=== PATIENT | female | born 1940 | race Caucasian/White ===

== ENCOUNTER 2022-09-22 08:00 | Outpatient (CLI) | payer MEDICARE ==
[2022-09-22 20:56] LABS: BILIRUBIN,URINE NEGATIVE (NEGATIVE); GLUCOSE, URINE (UA) NEGATIVE (NEGATIVE); KETONES,URINE (UA) NEGATIVE (NEGATIVE); LEUKOCYTE ESTERASE, URINE TRACE (NEGATIVE); NITRITE,URINE POSITIVE (NEGATIVE); OCCULT BLOOD,URINE NEGATIVE (NEGATIVE); PROTEIN,URINE NEGATIVE (NEGATIVE); UROBILINOGEN,URINE 0.2 (NORMAL) E.U./dL (NORMAL)
[2022-09-22 21:51] LABS: BACTERIA,URINE Many /HPF (None Seen); CLARITY,URINE HAZY (CLEAR); RBC,URINE 0-5 /HPF (0-5); SQUAMOUS EPITHELIAL CELL,UR RARE Squamous (<= Few); WBC CLUMPS,URINE PRESENT; WBC,URINE >25 /HPF (0-5)
== END 2022-09-22 23:59 | disposition home or self-care (01) ==
LOC: LAB.S 08:00
PROVIDERS: ATTEND Emergency Medicine
DX: R30.0 Dysuria (principal)
CPT/HCPCS: 81001; 87086; 87181

== ENCOUNTER 2022-12-18 08:00 | Outpatient (CLI) | payer MEDICARE ==
[2022-12-18 20:26] LABS: BILIRUBIN,URINE NEGATIVE (NEGATIVE); GLUCOSE, URINE (UA) NEGATIVE (NEGATIVE); KETONES,URINE (UA) NEGATIVE (NEGATIVE); LEUKOCYTE ESTERASE, URINE MODERATE (NEGATIVE); NITRITE,URINE POSITIVE (NEGATIVE); OCCULT BLOOD,URINE TRACE-INTA (NEGATIVE); PROTEIN,URINE TRACE mg/dL (NEGATIVE); UROBILINOGEN,URINE 1 (NORMAL) E.U./dL (NORMAL)
[2022-12-18 20:38] LABS: CLARITY,URINE CLOUDY (CLEAR); SQUAMOUS EPITHELIAL CELL,UR RARE Squamous (<= Few); WBC,URINE >25 /HPF (0-5)
[2022-12-18 20:39] LABS: BACTERIA,URINE Many /HPF (None Seen)
== END 2022-12-18 23:59 | disposition home or self-care (01) ==
LOC: LAB 08:00
PROVIDERS: ATTEND Emergency Medicine
DX: R30.0 Dysuria (principal)
CPT/HCPCS: 81001; 87086; 87181

== ENCOUNTER 2023-03-09 08:00 | Outpatient (CLI) | payer MEDICARE ==
[2023-03-09 15:14] LABS: BILIRUBIN,URINE NEGATIVE (NEGATIVE); GLUCOSE, URINE (UA) NEGATIVE (NEGATIVE); KETONES,URINE (UA) NEGATIVE (NEGATIVE); LEUKOCYTE ESTERASE, URINE NEGATIVE (NEGATIVE); NITRITE,URINE NEGATIVE (NEGATIVE); OCCULT BLOOD,URINE NEGATIVE (NEGATIVE); PH,URINE 5.5 PH (5.0-7.5); PROTEIN,URINE NEGATIVE (NEGATIVE); UROBILINOGEN,URINE 0.2 (NORMAL) E.U./dL (NORMAL)
[2023-03-09 15:35] LABS: BACTERIA,URINE Rare /HPF (None Seen); CLARITY,URINE CLEAR (CLEAR); RBC,URINE 0-5 /HPF (0-5); SQUAMOUS EPITHELIAL CELL,UR RARE Squamous (<= Few)
== END 2023-03-09 23:59 | disposition home or self-care (01) ==
LOC: LAB.S 08:00
PROVIDERS: ATTEND Physician Assistant
DX: R30.0 Dysuria (principal)
CPT/HCPCS: 81001; 87086

== ENCOUNTER 2023-09-22 08:00 | Outpatient (CLI) | payer MEDICARE | END 2023-09-22 23:59 | disposition home or self-care (01) | LOC: LAB.S 08:00 | PROVIDERS: ATTEND Registered Nurse | DX: R30.0 Dysuria (principal) | CPT/HCPCS: 87086 ==

== ENCOUNTER 2023-09-23 08:00 | Outpatient (CLI) | payer MEDICARE ==
--- NOTE | 2023-09-23 17:56 | XRAY Report ---
PROCEDURE: Abdomen Acute INDICATIONS: NAUSEA AND ABDOMINAL PAIN TECHNIQUE: 5 views of the abdomen were acquired. COMPARISON: None. FINDINGS: Surgical changes and devices: Thoracic aorta endograft repair. Cholecystectomy clips. Vascular stent projects over the left mid abdomen, likely within the renal artery. Partially visualized left femora l intramedullary pankaj and interlocking screw hardware. Chest: Lungs are clear. Hyperexpansion of the lungs with flattening of the diaphragms suggestive of obstructive pulmonary disease. Heart size is at the upper limits of normal tortuous descending thorac ic aorta. No pleural effusions. No pneumoperitoneum. Bowel: No pneumoperitoneum. The bowel gas pattern is normal. Above-average colonic stool burden. Soft tissues: No masses; visualized solid organ contours appear normal in size. No suspicious abdom inal calcifications. Bones: No suspicious bony abnormalities. IMPRESSION: 1.No acute abdominal or chest pathology. If there is high clinical suspicion for a radiographically o ccult process, consider cross-sectional imaging for further evaluation. 2.Above-average colonic stool burden compatible with constipation. Reviewed by: Nani Chambers MD on 09/23/2023 5:54 PM PST Approved by: Nani Chambers MD on 09/23/2023 5:54 PM PST Station ID: [id number]
== END 2023-09-23 23:59 | disposition home or self-care (01) ==
LOC: DI.S 08:00
PROVIDERS: ATTEND Registered Nurse
DX: R11.0 Nausea (principal); R10.9 Unspecified abdominal pain; R30.0 Dysuria
CPT/HCPCS: 87086

== ENCOUNTER 2023-10-08 10:47 | Outpatient (CLI) | payer MEDICARE ==
[2023-10-08 15:52] LABS: CALCIUM 9.4 mg/dL (8.5-10.3); CREATININE 1.8 mg/dL (0.6-1.3); PHOSPHORUS 4.7 mg/dL (2.5-5.0); POTASSIUM 5.4 mmol/L (3.5-4.5)
== END 2023-10-08 10:48 | disposition home or self-care (01) ==
LOC: LAB.S 10:47
PROVIDERS: ATTEND Internal Medicine
DX: N17.9 Acute kidney failure, unspecified (principal); E87.5 Hyperkalemia
CPT/HCPCS: 36415; 80048; 84100

== ENCOUNTER 2023-10-19 10:42 | Outpatient (CLI) | payer MEDICARE ==
[2023-10-19] MEDS: ALBUTEROL 1 PUFF INH STA (12:32)
== END 2023-10-19 10:43 | disposition home or self-care (01) ==
LOC: RT 10:42
PROVIDERS: ATTEND Internal Medicine
DX: I10 Essential (primary) hypertension (principal); R06.00 Dyspnea, unspecified; R53.83 Other fatigue
CPT/HCPCS: 94060

== ENCOUNTER 2023-12-02 13:12 | Outpatient (CLI) | payer MEDICARE ==
--- NOTE | 2023-12-02 22:51 | Ultrasound Report ---
PROCEDURE: Renal (Retroperitoneal) INDICATIONS: PAUL TECHNIQUE: Real-time scanning was performed of the retroperitoneal organs, with image documentation. COMPARISON: None. FINDINGS: Kidneys: Bilateral kidneys are normal in size. Right kidney measures 10.6 cm long; left kidney measu res 10.7 cm long. Right renal cortical thickness is 1 cm; left renal cortical thickness is 0.7 cm. O amanda anechoic cysts bilaterally with no septations or nodularity. No complex cystic lesions which requ rakesh follow-up. The largest cyst on the right measures 1.6 x 2.2 x 2.2 cm. The left-sided cysts are re latively uniform in size measuring less than 1 cm. Renal parenchyma is echogenic. No solid masses, hy dronephrosis, or nephrolithiasis. Bladder: Pre-void bladder volume is 114 mL. Post-void residual is 92 mL. Pre-void images demonstra te no intraluminal masses or stones. On pre-void images, bilateral ureteral jets are noted with colo r Doppler interrogation. (Of note, ureteral jets may not be detectable in up to 25% of cases due to insufficient differences in specific gravity between ureteral and bladder urine). Miscellaneous: No free abdominal fluid. IMPRESSION: 1.Renal parenchyma is echogenic which may be seen in the setting of kidney injury. No hydronephrosis or nephrolithiasis bilaterally. 2.Multiple cysts in the bilateral kidneys. No complex cystic lesions which require follow-up. 3.Post void residual is 92 mL. Reviewed by: Nani Chambers MD on 12/02/2023 10:49 PM PDT Approved by: Nani Chambers MD on 12/02/2023 10:49 PM PDT Station ID: [id number]
== END 2023-12-02 13:13 | disposition home or self-care (01) ==
LOC: DI 13:12
PROVIDERS: ATTEND Internal Medicine
DX: N17.9 Acute kidney failure, unspecified (principal); E87.5 Hyperkalemia; N28.1 Cyst of kidney, acquired

== ENCOUNTER 2023-12-14 13:35 | Outpatient (CLI) | payer MEDICARE ==
[2023-12-14 20:07] LABS: BASOPHILS % (AUTO) 0.3 %; EOSINOPHILS # (AUTO) 0.1 10^3/uL (0.0-0.7); EOSINOPHILS % (AUTO) 0.9 %; HCT - HEMATOCRIT 44.2 % (37.0-47.0); HGB - HEMOGLOBIN 13.1 g/dL (12.0-16.0); LYMPHOCYTES % (AUTO) 9.1 %; MEAN CORPUSCULAR HGB CONC 29.6 g/dL (32.0-36.0); MEAN CORPUSCULAR VOLUME 104.7 fL (81.0-99.0); MEAN PLATELET VOLUME 10.2 fL (7.9-10.8); MONOCYTES % (AUTO) 8.7 %; NEUTROPHILS # (AUTO) 9.1 10^3/uL (1.5-6.6); NEUTROPHILS % (AUTO) 80.7 %; PLT - PLATELET COUNT 199 10^3/uL (130-450); RED BLOOD COUNT 4.22 10^6/uL (4.20-5.40); RED CELL DISTRIBUTION WIDTH 12.5 % (12.0-15.0); WHITE BLOOD COUNT 11.2 x10^3/uL (4.8-10.8)
[2023-12-14 20:11] LABS: CALCIUM 9.8 mg/dL (8.5-10.3); CREATININE 1.8 mg/dL (0.6-1.3); PHOSPHORUS 4.2 mg/dL (2.5-5.0); POTASSIUM 5.5 mmol/L (3.5-4.5)
== END 2023-12-14 13:36 | disposition home or self-care (01) ==
LOC: LAB.S 13:35
PROVIDERS: ATTEND Internal Medicine Nephrology
DX: N05.9 Unspecified nephritic syndrome with unspecified morphologic changes (principal); N25.81 Secondary hyperparathyroidism of renal origin; E83.30 Disorder of phosphorus metabolism, unspecified; D70.9 Neutropenia, unspecified; D63.1 Anemia in chronic kidney disease
CPT/HCPCS: 36415; 80048; 83970; 84100; 85025

== ENCOUNTER 2023-12-24 18:21 | Outpatient (CLI) | payer MEDICARE | END 2023-12-24 18:22 | disposition short-term general hospital (02) | LOC: EMS 18:21 | DX: R07.9 Chest pain, unspecified (principal); M25.512 Pain in left shoulder; R06.02 Shortness of breath | CPT/HCPCS: A0425; A0427 ==

== ENCOUNTER 2023-12-25 16:26 | Outpatient (CLI) | payer MEDICARE | END 2023-12-25 23:59 | disposition critical access hospital (66) | LOC: EMS 16:26 | DX: R06.02 Shortness of breath (principal); M25.512 Pain in left shoulder | CPT/HCPCS: A0425; A0429 ==

== ENCOUNTER 2023-12-25 16:53 | Emergency (ER) | payer MEDICARE ==
--- NOTE | 2023-12-25 17:06 | ED Physician Documentation ---
History of Present Illness - Stated complaint Stated Complaint: SOA - Chief complaint Chief Complaint: Resp - Additonal information Additional information: 83-year-old female with history of aortic dissection And Sleep apnea Presents emergency department for left shoulder pain, chest pain, shortness of breath. Patient was seen at [facility] emergency department yesterday and had a clean bill of health and was discharged home. Patient reports that she started having new worsening left shoulder pain with worsening shortness of breath also complains of urinary urgency and frequency. No recent fevers or chills no recent illnesses no cough or congestion. PD PAST MEDICAL HISTORY - Present Medications Home Medications: Ambulatory Orders Medication Instructions Recorded Confirmed Amox/Clav 875/125 [Augmentin 1 tablet PO Q12H 5 Days #9 tablet 12/25/23 875/125 Tab] Apixaban [Eliquis] 2.5 mg PO BID 12/25/23 12/25/23 Azithromycin [Zithromax] 250 mg PO UD 5 Days #6 tablet 12/25/23 Carbidopa/Levodopa [Sinemet 25-100 1 each PO . 4-6 TIMES A DAY 12/25/23 12/25/23 mg Tablet] Famotidine [Pepcid] 20 mg PO DAILY 12/25/23 12/25/23 Omeprazole 20 mg PO DAILY 12/25/23 12/25/23 Rosuvastatin Calcium 20 mg PO HS 12/25/23 12/25/23 amLODIPine [Norvasc] 2.5 mg PO DAILY 12/25/23 12/25/23 lamoTRIgine [LaMICtal] 100 mg PO DAILY 12/25/23 12/25/23 - Allergies Allergies/Adverse Reactions: Allergies Allergy/AdvReac Type Severity Reaction Status Date / Time diltiazem AdvReac Unknown Verified 12/25/23 17:06 lithium AdvReac Unknown Verified 12/25/23 17:06 pramipexole AdvReac Unknown Verified 12/25/23 17:06 sertraline AdvReac Unknown Verified 12/25/23 17:06 tetracycline AdvReac Emesis Verified 12/25/23 17:06 valproic acid AdvReac Emesis Verified 12/25/23 17:06 - Social History Does the pt smoke?: No Smoking Status: Never smoker PD ED PE NORMAL - Vitals Vital signs reviewed: Yes - General General: Alert and oriented X 3, No acute distress, Well developed/nourished - HEENT HEENT: Atraumatic - Neck Neck: No JVD - Cardiac Cardiac: RRR, No murmur, No gallop, Strong equal pulses - Respiratory Respiratory: No respiratory distress, Clear bilaterally - Abdomen Abdomen: Normal bowel sounds, Soft, Non tender, Non distended, No organomegaly - Back Back: No CVA TTP - Derm Derm: Normal color, Warm and dry, No rash - Extremities Extremities: No edema, No calf tenderness / cord - Neuro Neuro: Alert and oriented X 3, 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) Computer interpretation: Agree with computer - Labs Labs: Laboratory Tests 12/25/23 12/25/23 12/25/23 17:11 17:59 17:59 WBC 19.6 H RBC 3.83 L Hgb 12.1 Hct 39.2 MCV 102.3 H MCH 31.6 H MCHC 30.9 L RDW 12.4 Plt Count 164 MPV 9.6 Neut # (Auto) 16.3 H Lymph # (Auto) 1.0 L [place] # (Auto) 2.2 H Eos # (Auto) 0.0 Baso # (Auto) 0.0 Absolute Nucleated RBC 0.00 Band Neuts % (Manual) Not Reportable Abnorm Lymph % (Manual) Not Reportable Nucleated RBC % 0.0 Neutrophils # (Manual) Not Reportable Lymphocytes # (Manual) Not Reportable Monocytes # (Manual) Not Reportable Eosinophils # (Manual) Not Reportable Basophils # (Manual) Not Reportable Differential Comment MANUAL=AUTO DIFF Platelet Estimate NORMAL (130-450,000) Platelet Morphology NORMAL APPEARANCE RBC Morph Micro Appear NORMAL APPEARANCE Sodium 136 Potassium 4.6 H Chloride 108 Carbon Dioxide 20 L Anion Gap 8.0 BUN 41 H Creatinine 1.7 H Estimated GFR (MDRD) 29 L Glucose 118 H Calcium 9.2 Total Bilirubin 0.6 AST 11 ALT 3 L Alkaline Phosphatase 54 Troponin I High Sens 19.0 H* B-Natriuretic Peptide Total Protein 6.1 L Albumin 3.6 Globulin 2.5 Albumin/Globulin Ratio 1.4 Lipase 22 Urine Color YELLOW Urine Clarity CLEAR Urine pH 6.0 Ur Specific [place] 1.010 Urine Protein 30 H Urine Glucose (UA) NEGATIVE Urine Ketones NEGATIVE Urine Occult Blood NEGATIVE Urine Nitrite NEGATIVE Urine Bilirubin NEGATIVE Urine Urobilinogen 0.2 (NORMAL) Ur Leukocyte Esterase NEGATIVE Urine RBC None Seen Urine WBC 4-5 Ur Epithelial Cells RARE Transitional Ur Squamous Epith Cells RARE Squamous Urine Bacteria Rare Ur Microscopic Review INDICATED Urine Culture Comments NOT INDICATED Nasal Adenovirus (PCR) Nasal B. parapertussis DNA (PCR) Nasal Coronavir 229E PCR Nasal Coronavir HKU1 PCR Nasal Coronavir NL63 PCR Nasal Coronavir OC43 PCR Nasal Enterovir/Rhinovir PCR Nasal Influenza B PCR Nasal Influenza A PCR Nasal Parainfluen 1 PCR Nasal Parainfluen 2 PCR Nasal Parainfluen 3 PCR Nasal Parainfluen 4 PCR Nasal RSV (PCR) Nasal B.pertussis DNA PCR Nasal C.pneumoniae (PCR) Eder Human Metapneumo PCR Nasal M.pneumoniae (PCR) Nasal SARS-CoV-2 (PCR) 12/25/23 12/25/23 12/25/23 17:59 21:04 22:17 WBC RBC Hgb Hct MCV MCH MCHC RDW Plt Count MPV Neut # (Auto) Lymph # (Auto) [place] # (Auto) Eos # (Auto) Baso # (Auto) Absolute Nucleated RBC Band Neuts % (Manual) Abnorm Lymph % (Manual) Nucleated RBC % Neutrophils # (Manual) Lymphocytes # (Manual) Monocytes # (Manual) Eosinophils # (Manual) Basophils # (Manual) Differential Comment Platelet Estimate Platelet Morphology RBC Morph Micro Appear Sodium Potassium Chloride Carbon Dioxide Anion Gap BUN Creatinine Estimated GFR (MDRD) Glucose Calcium Total Bilirubin AST ALT Alkaline Phosphatase Troponin I High Sens 18.9 H* B-Natriuretic Peptide 449 H Total Protein Albumin Globulin Albumin/Globulin Ratio Lipase Urine Color Urine Clarity Urine pH Ur Specific [place] Urine Protein Urine Glucose (UA) Urine Ketones Urine Occult Blood Urine Nitrite Urine Bilirubin Urine Urobilinogen Ur Leukocyte Esterase Urine RBC Urine WBC Ur Epithelial Cells Ur Squamous Epith Cells Urine Bacteria Ur Microscopic Review Urine Culture Comments Nasal Adenovirus (PCR) NOT DETECTED Nasal B. parapertussis DNA (PCR) NOT DETECTED Nasal Coronavir 229E PCR NOT DETECTED Nasal Coronavir HKU1 PCR NOT DETECTED Nasal Coronavir NL63 PCR NOT DETECTED Nasal Coronavir OC43 PCR NOT DETECTED Nasal Enterovir/Rhinovir PCR NOT DETECTED Nasal Influenza B PCR NOT DETECTED Nasal Influenza A PCR NOT DETECTED Nasal Parainfluen 1 PCR NOT DETECTED Nasal Parainfluen 2 PCR NOT DETECTED Nasal Parainfluen 3 PCR NOT DETECTED Nasal Parainfluen 4 PCR NOT DETECTED Nasal RSV (PCR) NOT DETECTED Nasal B.pertussis DNA PCR NOT DETECTED Nasal C.pneumoniae (PCR) NOT DETECTED Eder Human Metapneumo PCR NOT DETECTED Nasal M.pneumoniae (PCR) NOT DETECTED Nasal SARS-CoV-2 (PCR) NOT DETECTED - Rads (name of study) Chest x-ray Relevant Findings:: Final report received, EMP independent interpretation of test, Other (Lung volumes, atelectasis to left lower lung) PD Medical Decision Making - ED course ED course: 83-year-old female presents emergency department for shortness of breath, left shoulder pain, chest pain. Labs were collected while she was here patient's sister is at bedside and reports that she had mild leukocytosis yesterday at [facility] ER but does not member what the number was. White count today 19.6, RBCs 3.83. Potassium slightly elevated at 4.6 patient reports this is normal for her that she tends to have hyperkalemia due to her losartan. BUN elevated at 41, GFR 29 which appears to be patient's baseline kidney function last BUN was drawn in December as well as September and were found to be 43 at that time as well GFR at that point in time was 27. Her troponin did come back elevated at 19.0 but delta troponins after 2 hours were also completed and there was no elevation. BNP also slightly elevated at 449 patient reports that she was on furosemide in September for about a month and some change and did not report that this helped with her shortness of breath symptoms that she was experiencing. Urinalysis was also found to be unremarkable patient sister says that she has had an episode of sepsis in the past with normal urine. Patient has not had any recent antibiotic use. Chest x-ray was also complete for further evaluation which showed atelectasis with low lung volumes especially to the left lower lung. Because of this and the elevated white blood cell count out of an abundance of caution we decided to go ahead and start patient on Augmentin and azithromycin for possible community-acquired pneumonia. Patient does report that she has chronic shortness of breath that has been going on for years now I do not believe that this is due to any sort of ischemia. At this point in time I do not believe that patient meets any requirements for hospitalization she is told to follow-up with her health professor outpatient Dr. Khoa Lima for further evaluation and possible outpatient workup I did involve another ER Dr. Haney and patient's care for second opinion she agrees with plan see note for further information. Departure - Departure Disposition: 01 Home, Self Care Clinical Impression: Leukocytosis, Community acquired pneumonia, Elevated brain natriuretic peptide (BNP) level Condition: Stable Instructions: Pneumonia Prescriptions: Amox/Clav 875/125 [Augmentin 875/125 Tab] 1 tablet PO Q12H 5 Days #9 tablet Azithromycin [Zithromax] 250 mg PO UD 5 Days #6 tablet Comments: As we discussed is possible that you may be experiencing community-acquired pneumonia. I have sent antibiotics to [facility] pick these up tomorrow and take them as prescribed. Please follow-up with your primary care provider as well as her health professor outpatient for further evaluation of your ongoing shortness of breath. Please have a repeat chest x-ray done as well as repeat labs with your primary care provider. Please come back to the emergency department if you are having any worsening shortness of breath, worsening chest pain, or any other concerning symptoms. Forms: PCP List Discharge Date/Time: 12/25/23 22:55
[2023-12-25 18:13] LABS: BILIRUBIN,URINE NEGATIVE (NEGATIVE); GLUCOSE, URINE (UA) NEGATIVE (NEGATIVE); KETONES,URINE (UA) NEGATIVE (NEGATIVE); LEUKOCYTE ESTERASE, URINE NEGATIVE (NEGATIVE); NITRITE,URINE NEGATIVE (NEGATIVE); OCCULT BLOOD,URINE NEGATIVE (NEGATIVE); PROTEIN,URINE 30 mg/dL (NEGATIVE); UROBILINOGEN,URINE 0.2 (NORMAL) E.U./dL (NORMAL)
[2023-12-25 18:14] LABS: CLARITY,URINE CLEAR (CLEAR)
[2023-12-25 18:23] LABS: BACTERIA,URINE Rare /HPF (None Seen); RBC,URINE None Seen /HPF (0-5); SQUAMOUS EPITHELIAL CELL,UR RARE Squamous (<= Few)
[2023-12-25 18:24] LABS: BASOPHILS % (AUTO) 0.2 %; EOSINOPHILS % (AUTO) 0.1 %; HCT - HEMATOCRIT 39.2 % (37.0-47.0); HGB - HEMOGLOBIN 12.1 g/dL (12.0-16.0); LYMPHOCYTES % (AUTO) 4.9 %; MEAN CORPUSCULAR HEMOGLOBIN 31.6 pg (27.0-31.0); MEAN CORPUSCULAR HGB CONC 30.9 g/dL (32.0-36.0); MEAN CORPUSCULAR VOLUME 102.3 fL (81.0-99.0); MEAN PLATELET VOLUME 9.6 fL (7.9-10.8); MONOCYTES # (AUTO) 2.2 10^3/uL (0.0-1.0); MONOCYTES % (AUTO) 11.4 %; NEUTROPHILS # (AUTO) 16.3 10^3/uL (1.5-6.6); NEUTROPHILS % (AUTO) 82.8 %; PLT - PLATELET COUNT 164 10^3/uL (130-450); RED BLOOD COUNT 3.83 10^6/uL (4.20-5.40); RED CELL DISTRIBUTION WIDTH 12.4 % (12.0-15.0); WHITE BLOOD COUNT 19.6 x10^3/uL (4.8-10.8)
[2023-12-25 18:24] LABS: EPITHELIAL CELLS,UR RARE Transitional /HPF (<= Few)
[2023-12-25 18:30] LABS: ALBUMIN 3.6 g/dL (3.2-5.5); ALBUMIN/GLOBULIN RATIO 1.4 (1.0-2.2); BILIRUBIN,TOTAL 0.6 mg/dL (0.2-1.0); CALCIUM 9.2 mg/dL (8.5-10.3); CREATININE 1.7 mg/dL (0.6-1.3); POTASSIUM 4.6 mmol/L (3.5-4.5); TOTAL PROTEIN 6.1 g/dL (6.4-8.9)
--- NOTE | 2023-12-25 18:45 | XRAY Report ---
PROCEDURE: Chest 1V INDICATIONS: Chest Pain TECHNIQUE: One view of the chest was acquired. COMPARISON: 09/23/2023 FINDINGS: Surgical changes and devices: There is an aortic arch stent seen. Lungs and pleura: Low lung volumes can be seen, causing a crowded appearance to the lung markings. P atchy interstitial-type infiltrate can be seen within the left lower lung. The right lung appears sabino ar. On the semiupright images, no large pneumothorax or large pleural effusions can be seen. Mediastinum: Mediastinal contours appear normal. Heart size is normal. Bones and chest wall: No suspicious bony lesions. Age-appropriate degenerative changes are seen. O verlying soft tissues appear unremarkable. IMPRESSION: Low lung volumes with patchy interstitial type infiltrate involving the left lower lung. Atelectasis is suspected, although infectious infiltrate is possible. Please consider a short-term follow-up 2 view chest series (performed in deep inspiration) for furthe r evaluation. Postoperative and degenerative changes are seen. Reviewed by: Kolton Nichols MD on 12/25/2023 5:44 PM DARYL Approved by: Kolton Nichols MD on 12/25/2023 5:44 PM DARYL Station ID: [id number]
[2023-12-25 18:50] LABS: DIFFERENTIAL COMMENT MANUAL=AUTO DIFF; PLATELET ESTIMATE, MANUAL NORMAL (130-450,000) (NORMAL); PLATELET MORPHOLOGY NORMAL APPEARANCE (NORMAL); RBC MORPHOLOGY (MULTIPLE) NORMAL APPEARANCE (NORMAL)
[2023-12-25] MEDS: ASPIRIN 325 MG TABLET PO STA (19:10)
[2023-12-25 21:14] VITALS: O2SAT 93
[2023-12-25] MEDS: FUROSEMIDE 40 MG/4 ML VIAL IVP STA (22:08)
[2023-12-25] MEDS: AZITHROMYCIN INJ 500 MG in SODIUM CHLORIDE 0.9% 250 ML IV STA (22:32)
[2023-12-25] MEDS: cefTRIAXone 1 GM in SODIUM CHLORIDE 0.9% MINIBAG 100 ML IV STA (22:32)
[2023-12-25] MEDS: AMOX/CLAV 875 MG/125 MG TABLET PO STA (22:47)
[2023-12-25] MEDS: AZITHROMYCIN 250 MG TABLET PO STA (22:47)
[2023-12-25 22:58] VITALS: BP 105/58
--- NOTE | 2023-12-25 22:58 | ED Physician Documentation ---
ED Addendum - Addendum Addendum: 12/25/23 22:55 Note that MOOK Chavez asked me to consult in on this patient. Briefly, 83yF with pmh aortic dissection s/p stent on AC p/w R shoulder pain radiating to chest as well as acute on chronic soa and productive cough. patient is well appearing on exam and has ekg without acute ASYA or TWI and trop X 2 that is stable and just above cutoff for normal high sensitivity troponin. She has normal BP and equal BL pulses, and is now without pain in the ED therefore low suspicion for repeat aortic dissection or vascular pathology. She does however have decreased lung sounds BL lower lung desai with atelectasis vs pneumonia on chest xray. Recommend treatment for CAP in setting of acute on chronic soa with productive cough.
[2023-12-25 23:37] LABS: B. PARAPERTUSSIS- RESP PCR PAN NOT DETECTED; B. PERTUSSIS- RESP PCR PANEL NOT DETECTED; C. PNEUMONIAE- RESP PCR PANEL NOT DETECTED; CORONAVIRUS 229E-RESP PCR NOT DETECTED; CORONAVIRUS HKU1-RESP PCR NOT DETECTED; CORONAVIRUS NL63-RESP PCR NOT DETECTED; CORONAVIRUS OC43-RESP PCR NOT DETECTED; HUMAN METAPNEUMOVIRUS NOT DETECTED; INFLUENZA A- RESP PCR PANEL NOT DETECTED; INFLUENZA B - RESP PCR PANEL NOT DETECTED; M. PNEUMONIAE- RESP PCR PANEL NOT DETECTED; PARAINFLUENZA VIRUS 1 NOT DETECTED; PARAINFLUENZA VIRUS 2 NOT DETECTED; PARAINFLUENZA VIRUS 3 NOT DETECTED; PARAINFLUENZA VIRUS 4 NOT DETECTED; RHINOVIRUS/ENTEROVIRUS NOT DETECTED; RSV- RESP PCR PANEL NOT DETECTED; SARS-CoV-2 -RESP PCR PANEL NOT DETECTED
== END 2023-12-25 22:55 | disposition home or self-care (01) ==
LOC: EDUNIT# → ED 16:53
DX: J18.9 Pneumonia, unspecified organism (principal); D72.829 Elevated white blood cell count, unspecified; R79.89 Other specified abnormal findings of blood chemistry; Z79.01 Long term (current) use of anticoagulants; Z79.899 Other long term (current) drug therapy
CPT/HCPCS: 36415; 71045; 80053; 81001; 83690; 83880; 84484; 85025; 87633; 93005; 96374; 99284; A9270; 81003; 87086

== ENCOUNTER 2024-01-05 15:50 | Outpatient (CLI) | payer MEDICARE ==
--- NOTE | 2024-01-05 20:40 | XRAY Report ---
PROCEDURE: Chest 2V INDICATIONS: DYSPNEA,PNEUMONIA TECHNIQUE: 2 views of the chest were acquired. COMPARISON: 12/25/2023. FINDINGS: Surgical changes and devices: Thoracic aortic stent is seen. Lungs and pleura: No pleural effusions or pneumothorax. Lungs are clear. Mediastinum: Mediastinal contours appear normal. Heart size is enlarged. Bones and chest wall: No suspicious bony lesions. Overlying soft tissues appear unremarkable. IMPRESSION: No acute cardiopulmonary process. Previously noted possible left basilar infiltrate versus atelectasi s is no longer seen. Reviewed by: Heath Glover MD on 01/05/2024 8:38 PM PDT Approved by: Heath Glover MD on 01/05/2024 8:38 PM PDT Station ID: [id number]
== END 2024-01-05 15:51 | disposition home or self-care (01) ==
LOC: DI 15:50
PROVIDERS: ATTEND Internal Medicine
DX: J18.9 Pneumonia, unspecified organism (principal)

== ENCOUNTER 2024-03-02 08:00 | Outpatient (CLI) | payer MEDICARE ==
--- NOTE | 2024-03-02 16:26 | XRAY Report ---
PROCEDURE: Chest 2V INDICATIONS: FATIGUE TECHNIQUE: 2 views of the chest were acquired. COMPARISON: 01/05/2024 FINDINGS: Surgical changes and devices: Thoracic aortic stent. Lungs and pleura: No pleural effusions or pneumothorax. Lungs are clear. Mediastinum: Mediastinal contours appear normal. Heart size is enlarged, stable. Bones and chest wall: No suspicious bony lesions. Overlying soft tissues appear unremarkable. IMPRESSION: No acute cardiopulmonary process. Reviewed by: Vinnie Fuentes MD on 03/02/2024 4:24 PM PDT Approved by: Vinnie Fuentes MD on 03/02/2024 4:24 PM PDT Station ID: [id number]
== END 2024-03-02 23:59 | disposition home or self-care (01) ==
LOC: DI.S 08:00
PROVIDERS: ATTEND Registered Nurse
DX: R53.83 Other fatigue (principal); R06.09 Other forms of dyspnea

== ENCOUNTER 2024-03-02 08:00 | Outpatient (CLI) | payer MEDICARE | END 2024-03-02 23:59 | disposition home or self-care (01) | LOC: LAB.N 08:00 | PROVIDERS: ATTEND Registered Nurse | DX: R82.79 Other abnormal findings on microbiological examination of urine (principal); R53.83 Other fatigue; R06.09 Other forms of dyspnea | CPT/HCPCS: 87086 ==

== ENCOUNTER 2024-03-04 12:58 | Outpatient (CLI) | payer MEDICARE ==
[2024-03-04 19:52] LABS: BASOPHILS % (AUTO) 0.3 %; EOSINOPHILS # (AUTO) 0.1 10^3/uL (0.0-0.7); EOSINOPHILS % (AUTO) 0.9 %; HCT - HEMATOCRIT 44.4 % (37.0-47.0); HGB - HEMOGLOBIN 13.3 g/dL (12.0-16.0); LYMPHOCYTES # (AUTO) 0.9 10^3/uL (1.5-3.5); LYMPHOCYTES % (AUTO) 8.5 %; MEAN CORPUSCULAR HEMOGLOBIN 31.1 pg (27.0-31.0); MEAN CORPUSCULAR VOLUME 103.7 fL (81.0-99.0); MEAN PLATELET VOLUME 10.1 fL (7.9-10.8); MONOCYTES # (AUTO) 0.8 10^3/uL (0.0-1.0); MONOCYTES % (AUTO) 7.9 %; NEUTROPHILS # (AUTO) 8.6 10^3/uL (1.5-6.6); NEUTROPHILS % (AUTO) 82.1 %; PLT - PLATELET COUNT 206 10^3/uL (130-450); RED BLOOD COUNT 4.28 10^6/uL (4.20-5.40); WHITE BLOOD COUNT 10.4 x10^3/uL (4.8-10.8)
[2024-03-04 20:10] LABS: ALBUMIN 4.2 g/dL (3.2-5.5); ALBUMIN/GLOBULIN RATIO 1.6 (1.0-2.2); BILIRUBIN,TOTAL 0.5 mg/dL (0.2-1.0); CALCIUM 9.7 mg/dL (8.5-10.3); CREATININE 1.8 mg/dL (0.6-1.3); POTASSIUM 5.1 mmol/L (3.5-4.5); TOTAL PROTEIN 6.9 g/dL (6.4-8.9)
== END 2024-03-04 12:59 | disposition home or self-care (01) ==
LOC: LAB.S 12:58
PROVIDERS: ATTEND Registered Nurse
DX: R53.83 Other fatigue (principal); R06.09 Other forms of dyspnea
CPT/HCPCS: 36415; 80053; 85025

== ENCOUNTER 2024-09-24 01:50 | Inpatient (IN) ==
--- NOTE | 2024-09-24 02:05 | ED Physician Documentation ---
PD HPI Fall Stated complaint Stated Complaint: FOUND DOWN Chief complaint Chief Complaint: Neuro History obtained from History obtained from: Patient (patient states went to bathroom and was getting back to bed, but misjudged and fell to floor. Pain right lateral hip and post erior thorax. hit [facility] for help. ) and EMS History of Present Illness Mechanism of injury: Lost balance Fall distance: Standing position Where injury occurred: Home (assisted living) Timing - onset: How many hours ago (1) Injury(ies) location: Neck, Back (thoracic area) and Right Lower Extremity (lateral hip); No Head Pain level max: 2 Pain level now: 2 Associated symptoms: No LOC or AMS Contributing factors: Anticoagulated (apixaban for atrial fib. ) Recently seen: Clinic ([place] had cough and congestion for several days, with some wheezing. seen at Walk In earlier today and Rx for Zpack. ) Treatment prior to arrival Treatment prior to arrival: oxygen for sats 90% RA by EMS. Meds/Allgy Home Medications Ambulatory Orders Medication Instructions Recorded Confirmed amlodipine 5 mg tablet 2.5 mg PO DAILY PM 06/28/24 09/24/24 carbidopa 25 mg-levodopa 100 mg 1 tab PO TID 06/28/24 09/24/24 tablet (Sinemet) carbidopa ER 50 mg-levodopa 200 mg 2 tab PO QID 06/28/24 09/24/24 tablet,extended release metoprolol tartrate 25 mg tablet 25 mg PO BID 06/28/24 09/24/24 omeprazole 20 mg capsule,delayed 20 mg PO QDAY 07/28/24 09/24/24 release quetiapine 100 mg tablet 300 mg PO .QHS 07/28/24 09/24/24 albuterol sulfate 90 mcg/actuation 1 inh inhalation QID #8.5 grams 08/01/24 09/24/24 aerosol inhaler (Ventolin HFA) apixaban 2.5 mg tablet (Eliquis) 2.5 mg PO BID 08/01/24 09/24/24 tiotropium 2.5 mcg-olodaterol 2.5 2 puff inhalation Q24H #4 grams 08/01/24 09/24/24 mcg/actuation mist for inhalation (Stiolto Respimat) trospium 60 mg capsule,extended 60 mg PO QAM #90 caps 08/01/24 09/24/24 release 24 hr d-mannose 500 mg capsule 500 mg PO DAILY 08/04/24 09/24/24 sennosides 8.6 mg capsule (senna) 8.6 mg PO HS PRN constipation 08/04/24 09/24/24 amoxicillin 875 mg tablet 875 mg PO BID #60 tabs 09/23/24 09/24/24 azithromycin 250 mg tablet See Rx Instructions PO .COMPLEX #6 09/23/24 09/24/24 tabs benzonatate 200 mg capsule 200 mg PO BID PRN cough #14 caps 09/23/24 09/24/24 dexamethasone 6 mg tablet 6 mg PO QDAY 3 days #3 tabs 09/23/24 09/24/24 acetaminophen 500 mg tablet 500 mg PO Q4H PRN fever or pain 09/24/24 09/24/24 (Tylenol Extra Strength) betamethasone valerate 0.1 % 1 applic topical DAILY PRN itching 09/24/24 09/24/24 topical cream clindamycin phosphate 1 % topical 1 applic topical DAILY PRN acne 09/24/24 09/24/24 solution famotidine 20 mg tablet 20 mg PO DAILY 09/24/24 09/24/24 hydrocodone 5 mg-acetaminophen 325 1 tab PO HS PRN pain 09/24/24 09/24/24 mg tablet lamotrigine 100 mg tablet 100 mg PO DAILY 09/24/24 09/24/24 losartan 50 mg tablet 50 mg PO DAILY 09/24/24 09/24/24 ondansetron HCl 8 mg tablet 4 - 8 mg PO BID nausea 09/24/24 09/24/24 rosuvastatin 20 mg tablet 20 mg PO DAILY 09/24/24 09/24/24 Allergies Allergies Allergy/AdvReac Type Severity Reaction Status Date / Time sertraline AdvReac Unknown Unknown Verified 06/28/24 13:42 valproic acid AdvReac Unknown Nausea Verified 06/28/24 13:42 diltiazem AdvReac Unknown Verified 12/25/23 17:06 lithium AdvReac Unknown Verified 06/28/24 13:42 pramipexole AdvReac Unknown Verified 12/25/23 17:06 tetracycline AdvReac Emesis Verified 12/25/23 17:06 [facility] Medical History Medical History Constipation History of sepsis x2 2015, 2021 hx uti, Atrial fibrillation Dense breast FH: colonic polyps History of restless legs syndrome Stopped smoking History of multiple pulmonary nodules Stenosis of artery of left lower extremity taking Eliquis Allergic rhinosinusitis Bipolar 2 disorder Pyelonephritis Acid reflux Social History Social History Smoking Status: Never smoker Living arrangement: Assisted living ([facility]) Marital Status: Single Living Condition: Alone and With caregiver(s) Relationship: Physical Activity: Walking Level: Assisted Home Mobility Equipment: Wheeled walker Do you feel safe in your home environment?: Yes Suffered physical, verbal, emotional, or financial abuse?: No ETOH Use: Liquor (gerson formerly to help with sleep, not drinking since adding gabapentin for sleep) Frequency: Occasional Substance Use: denies use Are you sexually active?: No Retired: Yes Exam Constitutional normal general appearance, no apparent distress and average body habitus HENMT normocephalic, head/scalp atraumatic and oropharynx normal Neck/C-Spine cervical spine tenderness noted (some tender right mid cerfvical area. ) Lymph no lymphadenopathy noted Chest inspection of chest normal and palpation of chest abnormal (some tenderness posterolateral rigth chest wall without crepitance nor clic) Respiratory breath sounds unequal (some decreased left base), normal respiratory effort, auscultation abnormal (bronchial breath sounds) (more to left base) and wheezing noted (expiratory wheezes) Cardiovascular normal heart rate noted and rhythm abnormal (irregular) Gastrointestinal abdomen soft to palpation and nontender to palpation Back/Pelvis no thoracic spine tenderness and no lumbar spine tenderness Extremities right lateral hip area some tender over trochanter area. No pain with rotation nor impaction passively. 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, no movement abnormality noted, no focal motor deficit noted, no sensory deficits noted and GCS 15 Psychiatry mental status grossly normal, oriented x3, thought process normal and cooperative Results Vitals Vitals: Vital Signs - 24 hr 09/24/24 01:52 09/24/24 02:00 09/24/24 02:51 Temperature 36.3 C L Temperature Source Temporal Artery Scan Pulse Rate 51 L 60 56 L Respiratory Rate 20 20 20 Blood Pressure 106/63 106/63 105/52 L O2 Saturation 100 90 L 94 O2 Source Room air Room air Room air If not protocol: Oxygen Flow, liters/minute Pain Intensity 4 09/24/24 03:18 09/24/24 03:21 09/24/24 03:30 Temperature Temperature Source Pulse Rate 58 L 58 L 61 Respiratory Rate 16 22 22 Blood Pressure 111/58 L O2 Saturation 89 L 94 O2 Source Nasal cannula Room air Nasal cannula If not protocol: Oxygen Flow, liters/minute 2 2 Pain Intensity 09/24/24 03:36 09/24/24 04:00 09/24/24 06:07 Temperature 36.5 C Temperature Source Temporal Artery Scan Pulse Rate 61 65 Respiratory Rate 22 22 Blood Pressure 105/50 L 122/59 L O2 Saturation 96 93 O2 Source Simple Mask Simple Mask If not protocol: Oxygen Flow, liters/minute 3 3 3 Pain Intensity 0 09/24/24 06:37 09/24/24 07:28 Temperature 36 C L Temperature Source Temporal Artery Scan Pulse Rate 64 97 Respiratory Rate 22 20 Blood Pressure 114/58 L 80/57 L O2 Saturation 97 93 O2 Source Simple Mask Simple Mask If not protocol: Oxygen Flow, liters/minute 3 3 Pain Intensity 0 Oxygen O2 Source Simple Mask Labs Labs: Laboratory Tests 09/24/24 09/24/24 02:00 03:27 WBC 17.7 H RBC 3.52 L Hgb 11.0 L Hct 36.1 L MCV 102.6 H MCH 31.3 H MCHC 30.5 L RDW 13.7 Plt Count 174 MPV 9.4 Neut # (Auto) 16.9 H Lymph # (Auto) 0.3 L Pen[place] # (Auto) 0.3 Eos # (Auto) 0.0 Baso # (Auto) 0.0 Absolute Nucleated RBC 0.00 Nucleated RBC % 0.0 PT 17.7 H INR 1.7 H APTT 32.9 Sodium 136 Potassium 4.5 Chloride 107 Carbon Dioxide 18 L Anion Gap 11.0 BUN 55 H Creatinine 2.5 H Estimated GFR (MDRD) 18 L Glucose 173 H Calcium 8.8 Magnesium 2.2 Total Bilirubin 0.4 AST 16 ALT 3 L Alkaline Phosphatase 71 Total Protein 6.0 L Albumin 3.5 Globulin 2.5 Albumin/Globulin Ratio 1.4 Lipase 23 Nasal Adenovirus (PCR) NOT DETECTED Nasal B. parapertussis DNA (PCR) NOT DETECTED Nasal Coronavir 229E PCR NOT DETECTED Nasal Coronavir HKU1 PCR NOT DETECTED Nasal Coronavir NL63 PCR NOT DETECTED Nasal Coronavir OC43 PCR NOT DETECTED Nasal Enterovir/Rhinovir PCR NOT DETECTED Nasal Influenza B PCR NOT DETECTED Nasal Influenza A PCR NOT DETECTED Nasal Parainfluen 1 PCR NOT DETECTED Nasal Parainfluen 2 PCR NOT DETECTED Nasal Parainfluen 3 PCR NOT DETECTED Nasal Parainfluen 4 PCR NOT DETECTED Nasal RSV (PCR) NOT DETECTED Nasal B.pertussis DNA PCR NOT DETECTED Nasal C.pneumoniae (PCR) NOT DETECTED Eder Human Metapneumo PCR NOT DETECTED Nasal M.pneumoniae (PCR) NOT DETECTED Nasal SARS-CoV-2 (PCR) NOT DETECTED PD Medical Decision Making ED course Complexity details: considered differential (She states she misjudged the bed coming back from the bathroom and fell to the floor. Some injury to the back and hip. Denies striking head. She was feeling a bit weaker generally from recent cough and congestion. Diagnosed with pneumonia at walk-in clinic earlier today. Was 90% sats on RA.), d/w patient and d/w therapeutic consultant (Dr. Gonzalez, neurosurgery at [facility], who felt injury was small and to repeat head CT at 4 hours and no further intervention if unchanged or better. ) Reviewed Lab Results: CTs were performed at the head neck chest and pelvis. These were the areas that were hurting and were contacted from the fall. No signs of fractures or acute abnormalities noted by myself or radiology. The head CT showed an incidental meningioma with calcification but There was a very small parafalcine subdural without any midline shift. 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 ED course: Several days of cough congestion and dyspnea. Seen in the walk-in clinic and diagnosed with pneumonia. Chest x-ray did not show particular infiltrates but clinically prescribed Zithromax pack. No inhalers. She was feeling a little bit weaker overall. She did not have any fainting but states she misjudged her bed coming back from the bathroom and fell. She called [facility] and the caregivers came and helped her. However due to some trouble breathing and being on blood thinners, EMS was called. On arrival here she was stating a very minimal headache and some pain in the back and hip. We will do CTs of these areas. No cervical collar was on as not really complaining of neck pain or neurosymptoms. She states her pain is mild in most areas. She was noted to be borderline hypoxic and actually placed on nasal cannula with saturations 87 to 88% which improved to 93 to 95%. She was given nebulizer treatment and incentive spirometry for sounds of bronchial congestion. The CT of the chest did show some mild infiltrate in the left lower lung. No effusion no pneumothorax. No obvious rib fractures. The head scan showed a incidental meningioma with calcification in the frontal area but there was a very small I will sign subdural hematoma without any midline shift. This imaging was pushed down to [facility] and I talked with the neurosurgeon on who said it was very minimal and even despite being on blood thinners would not necessitate transfer. They suggested a 4-hour repeat and if no larger than to hold the apixaban for a week and then resume normal treatments. The patient is still having some congestion with breathing and is hypoxic on room air. She is awake and conversant and attentive. I believe she would need hospitalization for treatment of her lower respiratory infection with hypoxia. We did hold her here of course for the 4-hour interval and will get a repeat CT scan at this time. Discharge Plan Discharge Patient Disposition: 68 [facility] DC/Xfer Condition: Stable Clinical Impression: Pneumonia, Accidental fall, Anticoagulant long-term use, Hypoxemia, Subdural hematoma, Contusion of hip, Contusion of back wall of thorax Prescriptions: No Action amlodipine 5 mg tablet 2.5 mg PO DAILY PM carbidopa-levodopa [Sinemet] 25-100 mg tablet 1 tab PO TID famotidine 20 mg tablet 20 mg PO DAILY losartan 50 mg tablet 50 mg PO DAILY rosuvastatin 20 mg tablet 20 mg PO DAILY acetaminophen [Tylenol Extra Strength] 500 mg tablet 500 mg PO Q4H PRN (Reason: fever or pain) betamethasone valerate 0.1 % cream 1 applic topical DAILY PRN (Reason: itching) clindamycin phosphate 1 % solution 1 applic topical DAILY PRN (Reason: acne) hydrocodone-acetaminophen 5-325 mg tablet 1 tab PO HS PRN (Reason: pain) ondansetron HCl 8 mg tablet 4 - 8 mg PO BID lamotrigine 100 mg tablet 100 mg PO DAILY Eliquis 2.5 mg tablet 2.5 mg PO BID Patient Comments: take 1 tablet by mouth twice a day trospium 60 mg capsule,extended release 24hr 60 mg PO QAM Qty: 90 0RF Rx Instructions: must be taken on empty stomach at least 1 hour before a meal/food with water only Stiolto Respimat 2.5-2.5 mcg/actuation mist 2 puff inhalation Q24H Qty: 4 1RF albuterol sulfate [Ventolin HFA] 90 mcg/actuation HFA aerosol inhaler 1 inh inhalation QID Qty: 8.5 2RF d-mannose 500 mg capsule 500 mg PO DAILY senna 8.6 mg capsule 8.6 mg PO HS PRN (Reason: constipation) benzonatate 200 mg capsule 200 mg PO BID PRN (Reason: cough) Qty: 14 0RF amoxicillin 875 mg tablet 875 mg PO BID Qty: 60 0RF azithromycin 250 mg tablet See Rx Instructions PO .COMPLEX Qty: 6 0RF Rx Instructions: For 250 mg dose pack: take 500 mg today (day 1), then 250 mg for 4 days (days 2-5) PO dexamethasone 6 mg tablet 6 mg PO QDAY 3 Days Qty: 3 0RF carbidopa-levodopa 50-200 mg tablet extended release 2 tab PO QID metoprolol tartrate 25 mg tablet 25 mg PO BID quetiapine 100 mg tablet 300 mg PO .QHS omeprazole 20 mg capsule,delayed release(DR/EC) 20 mg PO QDAY Print Language: Turkish
[2024-09-24 02:12] LABS: BASOPHILS % (AUTO) 0.2 %; HCT - HEMATOCRIT 36.1 % (37.0-47.0); LYMPHOCYTES # (AUTO) 0.3 10^3/uL (1.5-3.5); LYMPHOCYTES % (AUTO) 1.8 %; MEAN CORPUSCULAR HEMOGLOBIN 31.3 pg (27.0-31.0); MEAN CORPUSCULAR HGB CONC 30.5 g/dL (32.0-36.0); MEAN CORPUSCULAR VOLUME 102.6 fL (81.0-99.0); MEAN PLATELET VOLUME 9.4 fL (7.9-10.8); MONOCYTES # (AUTO) 0.3 10^3/uL (0.0-1.0); MONOCYTES % (AUTO) 1.7 %; NEUTROPHILS # (AUTO) 16.9 10^3/uL (1.5-6.6); NEUTROPHILS % (AUTO) 95.5 %; PLT - PLATELET COUNT 174 10^3/uL (130-450); RED BLOOD COUNT 3.52 10^6/uL (4.20-5.40); RED CELL DISTRIBUTION WIDTH 13.7 % (12.0-15.0); WHITE BLOOD COUNT 17.7 x10^3/uL (4.8-10.8)
[2024-09-24 02:20] LABS: MAGNESIUM 2.2 mg/dL (1.7-2.3)
[2024-09-24 02:34] LABS: ALBUMIN 3.5 g/dL (3.2-5.5); ALBUMIN/GLOBULIN RATIO 1.4 (1.0-2.2); BILIRUBIN,TOTAL 0.4 mg/dL (0.2-1.0); CALCIUM 8.8 mg/dL (8.5-10.3); CREATININE 2.5 mg/dL (0.6-1.3); POTASSIUM 4.5 mmol/L (3.5-4.5)
[2024-09-24] MEDS: ALBUTEROL NEB 2.5 MG/3 ML INH STA (03:17)
[2024-09-24] MEDS: cefTRIAXone 1 GM VIAL IVP STA (03:19)
[2024-09-24 04:30] LABS: B. PARAPERTUSSIS- RESP PCR PAN NOT DETECTED; B. PERTUSSIS- RESP PCR PANEL NOT DETECTED; C. PNEUMONIAE- RESP PCR PANEL NOT DETECTED; CORONAVIRUS 229E-RESP PCR NOT DETECTED; CORONAVIRUS HKU1-RESP PCR NOT DETECTED; CORONAVIRUS NL63-RESP PCR NOT DETECTED; CORONAVIRUS OC43-RESP PCR NOT DETECTED; HUMAN METAPNEUMOVIRUS NOT DETECTED; INFLUENZA A- RESP PCR PANEL NOT DETECTED; INFLUENZA B - RESP PCR PANEL NOT DETECTED; M. PNEUMONIAE- RESP PCR PANEL NOT DETECTED; PARAINFLUENZA VIRUS 1 NOT DETECTED; PARAINFLUENZA VIRUS 2 NOT DETECTED; PARAINFLUENZA VIRUS 4 NOT DETECTED; RHINOVIRUS/ENTEROVIRUS NOT DETECTED; RSV- RESP PCR PANEL NOT DETECTED; SARS-CoV-2 -RESP PCR PANEL NOT DETECTED
[2024-09-24 04:43] LABS: PARTIAL THROMBOPLASTIN TIME 32.9 secs (24.9-33.3)
[2024-09-24 04:47] LABS: INR 1.7 (0.8-1.2); PT - PROTHROMBIN TIME 17.7 secs (9.9-12.6)
[2024-09-24] MEDS: SODIUM CHLORIDE 0.9% 1,000 ML IV STA (07:26)
[2024-09-24] MEDS: AZITHROMYCIN INJ 500 MG in SODIUM CHLORIDE 0.9% 250 ML IV STA (08:39)
--- NOTE | 2024-09-24 08:44 | CT Report ---
PROCEDURE: CT Head WO INDICATIONS: interval assessment parafalcine subdural TECHNIQUE: Noncontrast 4.5 mm thick angled axial sections acquired from the foramen magnum to the vertex. For r adiation dose reduction, the following was used: automated exposure control, adjustment of mA and/or kV according to patient size. COMPARISON: Earlier on 09/24/2024, at 0220 hours. FINDINGS: Image quality: Excellent. CSF spaces: Basal cisterns are patent. Unchanged focal left parafalcine subdural hematoma. Ventricle s are normal in size and shape. Brain: No midline shift. Extra-axial hyperdense lesion in the right lateral frontal region most like ly represents a chronic incidental meningioma. It measures approximately 1.5 cm in diameter. There is no associated vasogenic edema. There is a small focal left parafalcine subdural hematoma which measu res 2 mm in diameter, and is unchanged from the previous study. Kilgore-white matter interface is normal . Skull and face: Calvarium and visualized facial bones are intact, without suspicious lesions. Sinuses: Visualized sinuses and mastoids are clear. IMPRESSION: 1. Unchanged focal 2 mm diameter left parafalcine subdural hematoma without mass effect or vasogenic edema. 2. Probable left lateral frontal incidental meningioma, a hyperdense lesion as well. 3. No interval hemorrhage. Findings are concordant with preliminary interpretation provided by [facility]. Reviewed by: Bong Harrison MD on 09/24/2024 8:43 AM PST Approved by: Bong Harrison MD on 09/24/2024 8:43 AM PST Station ID: [id number]
--- NOTE | 2024-09-24 08:49 | CT Report ---
PROCEDURE: CT Head WO INDICATIONS: fall, on DOC TECHNIQUE: Noncontrast 4.5 mm thick angled axial sections acquired from the foramen magnum to the vertex. For r adiation dose reduction, the following was used: automated exposure control, adjustment of mA and/or kV according to patient size. COMPARISON: None. FINDINGS: Image quality: Excellent. CSF spaces: Basal cisterns are patent. 2 mm thickness focal left parafalcine subdural hematoma witho ut any mass effect or shift. Ventricles are normal in size and shape. Brain: No midline shift. A hyperdense lesion in the right frontal region measuring 1.5 cm likely rep resents a incidental meningioma. Very small focal left parafalcine subdural hematoma measuring 2 mm w ithout mass effect or midline shift. Kilgore-white matter interface is normal. Intracranial carotid edwige cifications. Age-related volume loss and small vessel ischemic change. Skull and face: Calvarium and visualized facial bones are intact, without suspicious lesions. Sinuses: Visualized sinuses and mastoids are clear. IMPRESSION: 1. Very small focal left parafalcine subdural hematoma. 2. Probable 1.5 cm right frontal meningioma. 3. Age-related volume loss and small vessel ischemic change. Findings are concordant with preliminary interpretation provided by [facility]. A prelim inary report was given to the ordering ED physician on 09/24/2024 at 0317 hours PST. Reviewed by: Bong Harrison MD on 09/24/2024 8:48 AM PST Approved by: Bong Harrison MD on 09/24/2024 8:48 AM PST Station ID: [id number]
--- NOTE | 2024-09-24 09:32 | CT Report ---
PROCEDURE: CT Chest WO INDICATIONS: fall, right posterior thoracic pain TECHNIQUE: A CT scan of the chest was performed. Intravenous contrast media was not administered. Images were re corded and evaluated at appropriate window settings. Reformats: axial MIP of the chest, coronal and s agittal. For radiation dose reduction, the following was used: automated exposure control, adjustment of mA and/or kV according to patient size. COMPARISON: None. FINDINGS: Image quality: Diagnostic. Chest wall and lower neck: No thyroid nodule which requires sonographic follow up. No axillary or sup raclavicular adenopathy by size. Lungs and pleura: No consolidation. No pleural effusions. No pneumothorax. No suspicious pulmonary n odules which require follow up. Mediastinum: Heart size is enlarged. No pericardial effusion. Arch and proximal descending thoracic a ortic stent graft. Suspect that there is chronic dissection distal to the graft in the descending tho racic aorta and abdominal aorta. Ascending aorta measures 4.4 cm. No mediastinal adenopathy by size c riteria. Bones: No aggressive osseous abnormality. Increased thoracic kyphosis. Old right rib fracture. No acu te rib fracture.. Upper Abdomen: There is probable chronic dissection of the abdominal aorta. There is a left renal jose nt in place.. IMPRESSION: 1. No significant sequelae of acute trauma in the chest. 2. Remote endovascular repair of the aortic arch and proximal descending thoracic aorta. 3. Suspect chronic dissection of the lower thoracic aorta and abdominal aorta below the stent. 4. Ascending aortic aneurysm measuring 4.4 cm. Findings are concordant with preliminary interpretation provided by [facility]. Reviewed by: Bong Harrison MD on 09/24/2024 9:30 AM [facility] Approved by: Bong Harrison MD on 09/24/2024 9:30 AM PST Station ID: [id number]
--- NOTE | 2024-09-24 09:35 | CT Report ---
PROCEDURE: CT Cervical Spine WO INDICATIONS: fall, neck pain TECHNIQUE: Noncontrast 3 mm thick sections acquired from the skull base to the T4 level. Sagittal and coronal r eformats were then constructed. For radiation dose reduction, the following was used: automated exp osure control, adjustment of mA and/or kV according to patient size. COMPARISON: None. FINDINGS: Image quality: Excellent. Bones: No fractures or dislocations. There is 2 mm anterolisthesis of C2 on C3 with a widened disc s pace anteriorly versus posteriorly. This occurs in an area of prominent facet arthropathy and uncover tebral joint hypertrophy and bony foraminal narrowing. This most likely is a chronic finding. There i s a large posterior osteophyte at C5-C6 which results in canal stenosis. There is multilevel bony for aminal narrowing. Visualized superior ribs are intact. Soft tissues: Prevertebral soft tissues are normal in thickness. No paravertebral hematomas. No ap ical pneumothoraces. IMPRESSION: 1. No acute displaced cervical fracture or dislocation. 2. Diffuse cervical spondylitic change. 3. Findings at C2-C3 are most likely chronic long-standing findings. There may potentially be ligamen tous laxity at this level. If suspect acute injury, MRI may be helpful to evaluate for evidence of li gamentous injury. Findings are concordant with preliminary interpretation provided by [facility]. Reviewed by: Bong Harrison MD on 09/24/2024 9:33 AM PST Approved by: Bong Harrison MD on 09/24/2024 9:33 AM PST Station ID: [id number]
[2024-09-24] MEDS ORDERED: BENZONATATE 100 MG CAPSULE PO PRN (09:41)
[2024-09-24] MEDS ORDERED: ONDANSETRON ODT 4 MG TABLET TL PRN (09:41)
[2024-09-24] MEDS ORDERED: oxyCODONE 5 MG TABLET PO PRN (09:41)
[2024-09-24] MEDS ORDERED: ONDANSETRON 4 MG/2 ML VIAL IVP PRN (09:41)
--- NOTE | 2024-09-24 09:41 | CT Report ---
PROCEDURE: CT Pelvis WO INDICATIONS: fall, right hip area pain TECHNIQUE: Noncontrast 3 mm axial sections acquired through the bony pelvis, with coronal and sagittal reformatt ing. For radiation dose reduction, the following was used: automated exposure control, adjustment of mA and/or kV according to patient size. COMPARISON: None. FINDINGS: Image quality: Excellent. Bones: No acute fracture or dislocation of the pelvis and right hip. Remote ORIF of the left hip. Or thopedic hardware is visualized intact without hardware failure or loosening. Soft tissues: Suspect that the dissection of the aorta which begins in the thoracic aorta and extend s into the abdominal aorta continues on to involve the right common iliac artery. Remote hysterectomy . No acute soft tissue abnormality noted. IMPRESSION: 1. No acute fracture or dislocation involving the pelvis. 2. Likely chronic aortic dissection, which has been treated in the thoracic region with a stent graft . The dissection likely extends to involve the entirety of the abdominal aorta and the right common i liac artery. 3. Remote hysterectomy. 4. No acute soft tissue injury noted. Reviewed by: Bong Harrison MD on 09/24/2024 9:39 AM PST Approved by: Bong Harrison MD on 09/24/2024 9:39 AM PST Station ID: [id number]
--- NOTE | 2024-09-24 09:50 | HISTORY & PHYSICAL EXAMINATION ---
Chief Complaint Chief Complaint Chief Complaint: fall to floor after URI illness History of Present Illness Admitted From Admitted From:: assisted living Formerly [facility], later [facility] History Obtained From Records Reviewed: Twyla History obtained from: Dr. Peters History of Present Illness HPI Comment/Other: She is an 84-year-old female that lives in assisted living facility Formerly [facility]. Her past medical history is that of hypertension, chronic kidney disease stage IV, chronic dyspnea on exertion, bipolar 2 disorder, Parkinson's disease, and paroxysmal atrial fibrillation. She does have COPD and sees a hand presser. She was seen for routine follow-up September 20 in her primary care provider office where a referral to urology was done for overactive bladder and ACP discussion began. POLST was discussed but not completed. She had chronic lung findings on exam with that visit. But there is no acute change in her status and no change in her pulmonary medications was made. She then developed cough, congestion and worsening acute on chronic shortness of breath on September 22. Phlegm had increased in amount. It was now yellow. Shortness of breath was not present at rest. She could not get anything done to just get up out of a chair. Eating was an issue. A COVID test was done on her this morning and it was negative. She was taken to the walk-in clinic on September 23. Prior to going to the clinic she took some tiotropium and olodaterol. In the walk-in clinic temperature was 101.5. 94% saturated on room air. Pulse 75. Respirations 30. She is described as tachypneic with audible rails of the right lower lobe. A chest x-ray showed previous scarring along the right hilar and right border area that looked worse compared to previous x-ray from February of last year. Wire around the aorta. Early consolidation in the right lower lobe. They put on a diagnosis of hypoxia with an O2 sat of 94% but there is no documentation of use of oxygen. She was put on amoxicillin and azithromycin, dexamethasone and Tessalon Perles. Also on incentive spirometry. Prescriptions: To the [place] pharmacy. Is not clear if she was able to picker feeder those prescriptions and take a dose. Today in the ergonomist hours she got up to go to the bathroom. She is weak, tired. Short of breath. As she went toward the bed she put her hand out to balance herself and misjudged where the bed was and completely missed it and fell on the floor. She hurt her right gluteal area, right hip area. She denies syncope. She was conscious the entire time. She is brought to the emergency room close to 2 in the morning. Temperature was 36.3, pulse rate 51, respirations 20, blood pressure 106/63, O2 sat 100%. She then dropped to 90% on room air. She describes her pain at a 4 out of a 10 over that right hip area. Her white cell count is elevated at 17. BUN and creatinine are 55 and 2.5 with a history of chronic kidney disease stage IV. PCR did not detect any viral infection. Because of the hypoxemia, a CT of the chest was done and she had mild infiltrate in the left lower lobe. No rib fractures. She is on anticoagulation and a CT of the head was done. She has an incidental meningioma with calcification very very small parafalcine subdural without any midline shift. The subdural was discussed with Dr. Gonzalez at [facility]. He felt the injury was small and that we just needed to repeat the head CT at 4 hours to see if any intervention will need to be done. [address] of the head was redone and there is no change in the subdural size. I asked that she does not need transfer to [facility] per Dr. Harrison, and Dr. Wan is asking me to admit this patient for pneumonia. After discussing the case with him, I do feel she does meet criteria and that she has an abnormal infiltrate, hypoxemia, elevated white cell count, tachypnea and will admit the patient to inpatient status. Meds/Allgy Home Medications Ambulatory Orders Medication Instructions Recorded Confirmed amlodipine 5 mg tablet 2.5 mg PO DAILY PM 06/28/24 09/24/24 carbidopa 25 mg-levodopa 100 mg 1 tab PO TID 06/28/24 09/24/24 tablet (Sinemet) carbidopa ER 50 mg-levodopa 200 mg 2 tab PO QID 06/28/24 09/24/24 tablet,extended release metoprolol tartrate 25 mg tablet 25 mg PO BID 06/28/24 09/24/24 omeprazole 20 mg capsule,delayed 20 mg PO QDAY 07/28/24 09/24/24 release quetiapine 100 mg tablet 300 mg PO .QHS 07/28/24 09/24/24 albuterol sulfate 90 mcg/actuation 1 inh inhalation QID #8.5 grams 08/01/24 09/24/24 aerosol inhaler (Ventolin HFA) apixaban 2.5 mg tablet (Eliquis) 2.5 mg PO BID 08/01/24 09/24/24 tiotropium 2.5 mcg-olodaterol 2.5 2 puff inhalation Q24H #4 grams 08/01/24 09/24/24 mcg/actuation mist for inhalation (Stiolto Respimat) trospium 60 mg capsule,extended 60 mg PO QAM #90 caps 08/01/24 09/24/24 release 24 hr d-mannose 500 mg capsule 500 mg PO DAILY 08/04/24 09/24/24 sennosides 8.6 mg capsule (senna) 8.6 mg PO HS PRN constipation 08/04/24 09/24/24 amoxicillin 875 mg tablet 875 mg PO BID #60 tabs 09/23/24 09/24/24 azithromycin 250 mg tablet See Rx Instructions PO .COMPLEX #6 09/23/24 09/24/24 tabs benzonatate 200 mg capsule 200 mg PO BID PRN cough #14 caps 09/23/24 09/24/24 dexamethasone 6 mg tablet 6 mg PO QDAY 3 days #3 tabs 09/23/24 09/24/24 acetaminophen 500 mg tablet 500 mg PO Q4H PRN fever or pain 09/24/24 09/24/24 (Tylenol Extra Strength) betamethasone valerate 0.1 % 1 applic topical DAILY PRN itching 09/24/24 09/24/24 topical cream clindamycin phosphate 1 % topical 1 applic topical DAILY PRN acne 09/24/24 09/24/24 solution famotidine 20 mg tablet 20 mg PO DAILY 09/24/24 09/24/24 hydrocodone 5 mg-acetaminophen 325 1 tab PO HS PRN pain 09/24/24 09/24/24 mg tablet ipratropium bromide 42 mcg (0.06 2 spray intranasal QID 09/24/24 09/24/24 %) nasal spray lamotrigine 100 mg tablet 100 mg PO DAILY 09/24/24 09/24/24 losartan 50 mg tablet 50 mg PO DAILY 09/24/24 09/24/24 mirabegron 50 mg tablet,extended 50 mg PO Q24H 09/24/24 09/24/24 release 24 hr (Myrbetriq) ondansetron HCl 8 mg tablet 4 - 8 mg PO BID nausea 09/24/24 09/24/24 rosuvastatin 20 mg tablet 20 mg PO DAILY 09/24/24 09/24/24 Allergies Allergies Allergy/AdvReac Type Severity Reaction Status Date / Time sertraline AdvReac Unknown Unknown Verified 06/28/24 13:42 valproic acid AdvReac Unknown Nausea Verified 06/28/24 13:42 diltiazem AdvReac Unknown Verified 12/25/23 17:06 lithium AdvReac Unknown Verified 06/28/24 13:42 pramipexole AdvReac Unknown Verified 12/25/23 17:06 tetracycline AdvReac Emesis Verified 12/25/23 17:06 [facility] Medical History Medical History (Updated 09/24/24 @ 18:34 by Mily Childs MD) History of adenomatous polyp of colon Closed left hip fracture 07/2018 Constipation History of sepsis x2 2015, 2021 hx uti, Atrial fibrillation sees James Willingham. [id number] 5. Zio patch 01/2023 Sinus w SVT rare. TTE 01/2023 LVEF nml 60-65%, Grade 1 diastolic. LAE severe 54 ml/m, Mild to mod MR, RV nml. R pressures nml. Repeat TTE 6 months requested. 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 (20 cigarettes=1 Pk): 2 Second hand tobacco smoke exposure: No Do you dip or chew tobacco?: No Do you vape?: No Patient requests smoking cessation consult: No Initiate information on smoking cessation: No Living arrangement: Assisted living ([facility]) Marital Status: Living Condition: Alone and With caregiver(s) Support Person: Yes Relationship: Sibling Living Situation Details: Lives in assisted living facility. Independent. Sister is DPOA. 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 Retired: Yes Service: No POLST Patient has POLST: No POLST Status: DNR Review of Systems Constitutional Reports: Fatigue; Denies: Fever, Chills, Malaise, Weakness, Diaphoresis, Night sweats, Poor appetite, Weight gain or Weight loss Eyes Reports: Other (macular degeneration and wears glasses) Ears, nose, mouth, and throat Reports: Other (constant PND, terrible allergies, nose is copious snot by evening); Denies: Throat swelling Cardiovascular Reports: shortness of breath with exertion, Decreased exercise tolerance and other (chronic pino at rest and worse w exertion, can do 100 feet with a walker ); Denies: chest pain, palpitations, edema, swelling of feet/ankles, Syncope, shortness of breath when lying down or leg pain with exertion Respiratory Reports: Shortness of breath, Cough, Sputum production, Change in phlegm color, Wheezing, SOB at rest, SOB with exertion, Chest congestion and other (has chronic phlegm but this is worst she's ever been); Denies: Pleuritic pain, Pain on inspiration or Coughing up blood Gastrointestinal Reports: Heartburn and other (always constipated); Denies: Abdominal pain, Nausea, Vomiting, Coffee grounds in vomit or Change in bowel habits Genitourinary Reports: Urinary incontinence Musculoskeletal Reports: Back pain (ever since she missed sitting down on wheeled chairs and ended up on floor ) Integumentary/Breast Denies: Rash, New lesion or Breast mass Neurological Reports: Memory problems, Difficulty communicating thoughts and Other (PD dx bc of cogwheel rigidity. Last fall yrs ago. this is 1st fall in long ) Psychiatric Reports: Depression (doesn't like living in [facility]. ) Endocrine Reports: Fatigue and Cold intolerance Hematologic/Lymphatic Denies: Anemia, Easy bruising or Petechiae Allergic/Immunologic Reports: Wheezing; Denies: Hives, Throat swelling, Tongue swelling or Facial swelling Prior Level of Functionality: Lives in an [facility] because moved here from [place] 2 years ago to be closer to her sister. Dresses herself, feed herself, occasionally uses a walker. Still takes her own medications. Mild memory problems but she still wants to take her own medicines Exam Exam Very pale, exceedingly pleasant elderly woman with constant clearing of throat, blowing of nose during exam. No increased respiratory effort. Constitutional normal general appearance Mild kyphosis as she sits in the bed HENMT normocephalic, hearing grossly normal bilaterally (Mildly deaf), nasal mucous membranes abnormal (Runny, runny nose, constantly blowing) (pale) and oral mucous membranes normal Eyes PERRL, EOMs intact bilaterally and conjunctivae normal Neck/C-Spine supple and thyroid normal Lymph no lymphadenopathy noted Chest palpation of chest normal Respiratory normal respiratory effort Copious rhonchi. Having her sit up and deep breathe because the spasm of coughing with quite a bit gurgly phlegm that was yellow Cardiovascular normal heart rate noted Murmur Gastrointestinal abdomen normal to inspection, abdomen soft to palpation and nontender to palpation Back/Pelvis spine normal to inspection, no thoracic spine tenderness and no lumbar spine tenderness Extremities normal to inspection and normal to palpation ALVAREZ hose on. No edema noted. Neurology wood sawyer II-XII intact, no focal motor deficit noted and speech normal (Is word finding difficulty. She gets very exasperated that sometimes she c) She does have mild cogwheel rigidity but no tremor.States that balance is her main issue. Alert and oriented to person, place, time and situation. Skin skin color normal and no rash Conclusion/Plan Problem List (1) Acute respiratory failure with hypoxemia: Plan: Appears to be from a combination of pneumonia and bronchitis. Copious phlegm on exam and on lung exam. Chest x-ray confirms pneumonia. She has a history of COPD on her past medical history but she states that her pulmonary function studies do not show obstruction. In any case she meets criteria for a 2 midnight admission. I have explained to her that I hope that she is out of here by the third day. Hopefully she will be off oxygen when I treat problem #2 problem #3. She is a DO NOT RESUSCITATE. She does want to fill out a POLST but would like to do it with her sister. She already has an appointment with her PCP to fill that out. (2) Pneumonia: Plan: Started on community-acquired pneumonia pathway. I am ordering Rocephin 1 g daily and azithromycin 500 mg IV push daily for 3 doses. I have also ordered sputum collection for culture. White cell count is elevated and I will be monitoring that to see if it goes down with antibiotics. And she is hypoxic. Again I would like her to be off oxygen by the time of discharge.Her CT of lungs showed enlarged heart, and the arch and proximal descending thoracic aorta stent graft. She has a history of an aortic dissection with a stent she tells me. CT does not confirm pneumonia even though chest x-ray did. Lung sounds are abnormal. She is short of breath, hypoxic and with an elevated white cell count, so I will treat as pneumonia. Qualifiers: Laterality: unspecified laterality Lung location: unspecified part of lung Pneumonia type: due to unspecified organism Qualified Code(s): J18.9 - Pneumonia, unspecified organism (3) COPD (chronic obstructive pulmonary disease): Plan: Even though pulm function studies do not confirm her diagnosis, she still on an albuterol inhaler, betamethasone and ipratropium. I will continue that. Qualifiers: COPD type: chronic bronchitis Chronic bronchitis type: simple Q ualified Code(s): J41.0 - Simple chronic bronchitis (4) Subdural hematoma: Plan: I have asked nursing to make sure that if she has a change in mental status to notify telehealth immediately. She would need a repeat CT scan and transfer to [facility] if her subdural is expanding. (5) Contusion of hip: Plan: No bruising visible. Full range of motion in the hip. She says the pain is not too severe. She says that Tylenol will be enough. Qualifiers: Encounter type: initial encounter Laterality: right Qualified Code(s): S70.01XA - Contusion of right hip, initial encounter (6) Contusion of back wall of thorax: Plan: Again, no bruising visible. She feels the pain will be controlled by Tylenol. Qualifiers: Encounter type: initial encounter Thoracic wall location detail: right Qualified Code(s): S20.221A - Contusion of right back wall of thorax, initial encounter (7) Accidental fall: Plan: She wants me to emphasize to everyone that this was a simple fall. She missed the bed. She does not want anybody to think that she passed out. Qualifiers: Encounter type: initial encounter Qualified Code(s): W19.XXXA - Unspecified fall, initial encounter (8) Hypertension: Plan: Home medications of metoprolol tartrate 25 mg p.o. twice daily, amlodipine 2.5 mg daily, losartan 50 mg daily will be continued while here. Will monitor her blood pressure and adjust medications as necessary. In the ER, ergonomist hours, she did drop her blood pressure to 80/57. Since then she has bounced back up and is 110/57 this afternoon. Qualifiers: Hypertension type: primary hypertension Qualified Code(s): I10 - Essential (primary) hypertension (9) Parkinson disease: Plan: Again, I disease that she may or may not have. Diagnosed with [facility] decades ago. Diagnosed on the basis of cogwheel rigidity. She does not have a tremor. And even though she complains of loss of balance, last fall was years ago and she does not think her loss of balance is anything to do with it. She would like me to make sure that she is on the correct dose of her Sinemet. (10) Anticoagulant long-term use: Plan: For paroxysmal A-fib. And history of left leg stent. That will not be resumed for a few more days. Neurosurgery attending feels that should wait (11) Atrial fibrillation: Plan: So far her rate is controlled. I have resumed her metoprolol. No resumption of anticoagulation for the next few days. Qualifiers: Atrial fibrillation type: paroxysmal Qualified Code(s): I48.0 - Paroxysmal atrial fibrillation Lab Results Lab results reviewed: Yes 09/24/24 02:00 09/24/24 02:00 Core Measures Anticipated LOS I expect patient to be DC'd or transferred within 96 hours.: Yes DVT/VTE - Prophylaxis VTE/DVT Device ordered at admit?: Yes
[2024-09-24] MEDS ORDERED: TRIAMCINOLONE 0.1% CREAM 15 GM TUBE TOP PRN (09:58)
[2024-09-24] MEDS: IPRATROPIUM/ALBUTEROL 3 ML NEB INH SCH (10:37)
[2024-09-24] MEDS: LOSARTAN 50 MG TABLET PO SCH (10:45)
[2024-09-24] MEDS: METOPROLOL TARTRATE 25 MG TABLET PO SCH (10:45)
[2024-09-24] MEDS: amLODIPine 5 MG TABLET PO SCH (11:09)
[2024-09-24] MEDS: lamoTRIgine 100 MG TABLET PO SCH (11:09)
[2024-09-24] MEDS: CARBIDOPA/LEVODOPA ER 50 MG/200 MG TABLET PO SCH (11:10)
[2024-09-24] MEDS: FAMOTIDINE 20 MG TABLET PO SCH (11:11)
[2024-09-24] MEDS: SODIUM CHLORIDE 0.9% 1,000 ML IV SCH (11:16)
[2024-09-24] MEDS: SODIUM CHLORIDE FLUSH 0.9% 10 ML SYRINGE IVP PRN (11:17)
[2024-09-24] MEDS: SODIUM CHLORIDE FLUSH 0.9% 10 ML SYRINGE IVP SCH (11:17)
[2024-09-24] MEDS: cefTRIAXone 1 GM in SODIUM CHLORIDE 0.9% MINIBAG 100 ML IV SCH (11:19)
--- NOTE | 2024-09-24 15:23 | PHARMACY PROGRESS NOTE ---
Best Possible Medication History Admit Date and Time: 09/24/24 [id number] Home Medications Medication Instructions Recorded Confirmed Type amlodipine 5 mg tablet 2.5 mg PO DAILY PM 06/28/24 09/24/24 History carbidopa 25 mg-levodopa 100 mg 1 tab PO TID 06/28/24 09/24/24 History tablet (Sinemet) carbidopa ER 50 mg-levodopa 200 mg 2 tab PO QID 06/28/24 09/24/24 History tablet,extended release metoprolol tartrate 25 mg tablet 25 mg PO BID 06/28/24 09/24/24 History omeprazole 20 mg capsule,delayed 20 mg PO QDAY 07/28/24 09/24/24 History release quetiapine 100 mg tablet 300 mg PO .QHS 07/28/24 09/24/24 History albuterol sulfate 90 mcg/actuation 1 inh inhalation QID #8.5 grams 08/01/2404/10 Rx aerosol inhaler (Ventolin HFA) apixaban 2.5 mg tablet (Eliquis) 2.5 mg PO BID 08/01/24 09/24/24 History tiotropium 2.5 mcg-olodaterol 2.5 2 puff inhalation Q24H #4 grams 08/01/2404/10 Rx mcg/actuation mist for inhalation (Stiolto Respimat) trospium 60 mg capsule,extended 60 mg PO QAM #90 caps 08/01/24 09/24/24 Rx release 24 hr d-mannose 500 mg capsule 500 mg PO DAILY 08/04/24 09/24/24 History sennosides 8.6 mg capsule (senna) 8.6 mg PO HS PRN constipation 08/04/24 09/24/24 History amoxicillin 875 mg tablet 875 mg PO BID #60 tabs 09/23/24 09/24/24 Rx azithromycin 250 mg tablet See Rx Instructions PO .COMPLEX #6 09/23/24 09/24/24 Rx tabs benzonatate 200 mg capsule 200 mg PO BID PRN cough #14 caps 09/23/24 09/24/24 Rx dexamethasone 6 mg tablet 6 mg PO QDAY 3 days #3 tabs 09/23/24 09/24/24 Rx acetaminophen 500 mg tablet 500 mg PO Q4H PRN fever or pain 09/24/24 09/24/24 History (Tylenol Extra Strength) betamethasone valerate 0.1 % 1 applic topical DAILY PRN itching 09/24/24 09/24/24 History topical cream clindamycin phosphate 1 % topical 1 applic topical DAILY PRN acne 09/24/24 09/24/24 History solution famotidine 20 mg tablet 20 mg PO DAILY 09/24/24 09/24/24 History hydrocodone 5 mg-acetaminophen 325 1 tab PO HS PRN pain 09/24/24 09/24/24 History mg tablet ipratropium bromide 42 mcg (0.06 2 spray intranasal QID 09/24/24 09/24/24 History %) nasal spray lamotrigine 100 mg tablet 100 mg PO DAILY 09/24/24 09/24/24 History losartan 50 mg tablet 50 mg PO DAILY 09/24/24 09/24/24 History mirabegron 50 mg tablet,extended 50 mg PO Q24H 09/24/24 09/24/24 History release 24 hr (Myrbetriq) ondansetron HCl 8 mg tablet 4 - 8 mg PO BID nausea 09/24/24 09/24/24 History rosuvastatin 20 mg tablet 20 mg PO DAILY 09/24/24 09/24/24 History Processed by: Pharmacy Medications reviewed in ED?: No Medication History completed: Yes Patient Interview: Pt unable to participate Secondary Source(s): Caregiver and Insurance records [facility] Statement: Pt unable to participate. Reviewed RN notes from "facility" along with [facility] Rx records. As the person ultimately responsible for medication therapy, providers are able to order a medication from an existing home medication list in [facility] via the "Reconcile Routine" prior to Confirmation of that medication by marketing support coordinator. Such practice is discouraged except when the physician, in their clinical judgment, deems that a medical need exists for a medication without regard to previous use.
[2024-09-24] MEDS: QUEtiapine 100 MG TABLET PO SCH (21:19)
[2024-09-25] MEDS ORDERED: SODIUM CHLORIDE 0.9% 0 ML ONE (03:26)
[2024-09-25 05:40] LABS: BASOPHILS % (AUTO) 0.2 %; EOSINOPHILS % (AUTO) 0.2 %; HCT - HEMATOCRIT 33.1 % (37.0-47.0); HGB - HEMOGLOBIN 10.2 g/dL (12.0-16.0); LYMPHOCYTES # (AUTO) 0.8 10^3/uL (1.5-3.5); LYMPHOCYTES % (AUTO) 6.3 %; MEAN CORPUSCULAR HEMOGLOBIN 31.3 pg (27.0-31.0); MEAN CORPUSCULAR HGB CONC 30.8 g/dL (32.0-36.0); MEAN CORPUSCULAR VOLUME 101.5 fL (81.0-99.0); MEAN PLATELET VOLUME 9.2 fL (7.9-10.8); MONOCYTES % (AUTO) 8.2 %; NEUTROPHILS # (AUTO) 10.3 10^3/uL (1.5-6.6); NEUTROPHILS % (AUTO) 84.6 %; PLT - PLATELET COUNT 178 10^3/uL (130-450); RED BLOOD COUNT 3.26 10^6/uL (4.20-5.40); RED CELL DISTRIBUTION WIDTH 13.7 % (12.0-15.0); WHITE BLOOD COUNT 12.1 x10^3/uL (4.8-10.8)
[2024-09-25 05:52] LABS: CALCIUM 8.2 mg/dL (8.5-10.3); CREATININE 1.9 mg/dL (0.6-1.3)
[2024-09-25] MEDS: polyethylene glycoL 3350 17 GM PACKET PO SCH (09:00)
[2024-09-25] MEDS: AZITHROMYCIN INJ 500 MG in SODIUM CHLORIDE 0.9% 250 ML IV SCH (09:47)
--- NOTE | 2024-09-25 14:46 | PROVIDER PROGRESS NOTE ---
Progress Note Progress Note Progress Note: September 2024 2:29 PM She feels much better. More alert. Less fatigue. But still completely annoyed by the fact that she is coughing so much and bringing up so much green-yellow phlegm. She is still on 2 L nasal cannula. She wants me to make sure that I am monitoring her chronic kidney disease. She does not want to get into trouble because I gave her the wrong medication. She wanted to know what her labs were today and I updated her on those. Also wants to tell me that she has a sore throat. Considering that she has started out with URI symptoms of cough, chest congestion, increasing phlegm, eustachian tube dysfunction, increased rhinitis, I am not surprised that she has a sore throat. Exam: Temperature is 36.5, heart rate 55, respirations 20, 96% saturated on 2 L nasal cannula. Blood pressure 116/74. She is sitting up in a chair. She has worked with physical therapy. He found that she was doing great from a functional perspective. She needs minimum assist to get up out of bed, sit in a chair, walk in the room. Definitely needs her oxygen and gets hypoxic on room air. He feels that she can go back to her assisted living facility when she is discharged. Alert and oriented to person, place, time and situation Exudate on the back of her throat. Neck is supple with shotty adenopathy. No tender adenopathy. Lungs have rub in the right lung, copious gurgling rhonchi both mid lungs and upper lungs. Scattered wheezing in the right lung that is faint. Diminished breath sounds at the bases. No tachypnea or increased respiratory effort and talking to me and asking questions. Regular rate and rhythm that is bradycardic with a systolic ejection murmur Abdomen is soft, nontender with normal bowel sounds. 75% of her food is being consumed. She had a bowel movement yesterday. MiraLAX was given today. Extremities are warm, no clubbing cyanosis or edema Labs reviewed by me: BUN and creatinine have improved. Today they are 41 and 1.9 in comparison to yesterday's 55 and 2.5. Sodium and potassium are normal. Glucose is 113. Calcium 8.2. CBC shows a white cell count that is improved. Admitted at 17.7 and she is down to 12.1 Blood cultures are negative after 1 day. Nursing says they have not been able to get a sputum sample even though she is producing copious phlegm and using incentive spirometry. Conclusion/Plan Problem List (1) Acute respiratory failure with hypoxemia: Plan: Appears to be from a combination of pneumonia and bronchitis. Copious phlegm on exam and on lung exam. Chest x-ray confirms pneumonia. She has a history of COPD on her past medical history but she states that her pulmonary function studies do not show obstruction. She is day 2 of stay. Still with hypoxemia requiring nasal cannula oxygen. Patient to remain inpatient status. See #3. . (2) Pneumonia: Plan: Started on community-acquired pneumonia pathway.Ordered Rocephin 1 g daily and she is day 2 of 5. I ordered azithromycin 500 mg daily and she is day 2 of 3. I have also ordered sputum collection for culture. Her CT of lungs showed enlarged heart, and the arch and proximal descending thoracic aorta stent graft. She has a history of an aortic dissection with a stent she tells me. CT does not confirm pneumonia even though chest x-ray did. Lung sounds are abnormal. She is short of breath, hypoxic and with an elevated white cell count, so I will treat as pneumonia. Although her white cell count is coming down, it is still not normal and hypoxia still requires 2 L nasal cannula. Still needs inpatient treatment. Qualifiers: Laterality: unspecified laterality Lung location: unspecified part of lung Pneumonia type: due to unspecified organism Qualified Code(s): J18.9 - Pneumonia, unspecified organism (3) Acute on chronic kidney disease Stage IV BUN and creatinine improved with the 1 L of fluids I gave her. Due to the nationwide shortage we are being very judicious with the use of continuous maintenance fluids and have only given him 1 L. He has responded to that, and the intravenous antibiotics. I will not be continuing maintenance IV fluids. I am encouraging her to take p.o. water and fluids. I will continue to monitor her BUN/creatinine on a daily basis. And avoid nephrotoxic medications. She tells me that she only takes Tylenol for pain in the outpatient setting. I told her that was excellent because she should be avoiding any nonsteroidal. In the inpatient side I would avoid medications such as vancomycin. I told her that "thank goodness you do not need that right now". (4) COPD (chronic obstructive pulmonary disease): Plan: Even though pulm function studies do not confirm her diagnosis, she still on an albuterol inhaler, betamethasone and ipratropium. I will continue that. I will be adding Solu-Medrol 40 mg IV push 3 times daily for 3 doses to see if that will improve some of the copious phlegm production, and wheezing that I hear on exam. Qualifiers: COPD type: chronic bronchitis Chronic bronchitis type: simple Qualified Code(s): J41.0 - Simple chronic bronchitis (5) Subdural hematoma: Plan: I have asked nursing to make sure that if she has a change in mental status to notify telehealth immediately. She would need a repeat CT scan and transfer to [facility] if her subdural is expanding. It is now Day 2 of hospitalization and her mental status has remained stable. [facility] neurosurgery attending requested no resumption of anticoagulation for a few days. (6) Contusion of hip: Plan: No bruising visible. Full range of motion in the hip. She says the pain is not too severe. She says that Tylenol will be enough. Qualifiers: Encounter type: initial encounter Laterality: right Qualified Code(s): S70.01XA - Contusion of right hip, initial encounter (7) Contusion of back wall of thorax: Plan: Again, no bruising visible. She feels the pain will be controlled by Tylenol. Qualifiers: Encounter type: initial encounter Thoracic wall location detail: right Qualified Code(s): S20.221A - Contusion of right back wall of thorax, initial encounter (8) Accidental fall in residential facility as place of occurrence Plan: She wants me to emphasize to everyone that this was a simple fall. She missed the bed. She does not want anybody to think that she passed out. Qualifiers: Encounter type: initial encounter (9) Hypertension: Plan: I initially continued her home medication list of metoprolol tartrate 25 mg p.o. twice daily, amlodipine 2.5 mg daily, losartan 50 mg daily . . Will monitor her blood pressure and adjust medications as necessary. 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 Since then her BP bounced back up and was 110/57 by 09/24 afternoon. Today her blood pressure has ranged from [id number]. She has corrected her medication list with the pharmacist. The admitting ER nurse had her on losartan as part of her list. She said she is not taking that. So I discontinued her losartan She did receive 1 dose. Will continue to monitor daily and adjust her medications as necessary to avoid hypotension or hypotension. Qualifiers: Hypertension type: primary hypertension Qualified Code(s): I10 - Essential (primary) hypertension (10) Parkinson disease: Plan: Again, I disease that she may or may not have. Diagnosed with [facility] decades ago. Diagnosed on the basis of cogwheel rigidity. She does not have a tremor. And even though she complains of loss of balance, last fall was years ago and she does not think her loss of balance is anything to do with it. She would like me to make sure that she is on the correct dose of her Sinemet. This morning, I left that project up to the pharmacist. They negotiated between themselves and came up with the medication list the way she likes it. She is now satisfied with her Sinemet dosing. (11) Anticoagulant long-term use: Plan: For paroxysmal A-fib. And history of left leg stent. That will not be resumed for a few more days. Neurosurgery attending feels that should wait (12) Atrial fibrillation: Plan: So far her rate is controlled. I have resumed her metoprolol. No resumption of anticoagulation for the next few days. I will need to sit down and talk to her about her [id number] score. It is 6 points. But her risk of falls is higher than her risk of stroke from A-fib. I may recommend that she no longer resume anticoagulation. Qualifiers: Atrial fibrillation type: paroxysmal Qualified Code(s): I48.0 - Paroxysmal atrial fibrillation Lab Results Lab results reviewed: Yes Current Medications Current Medications Current Medications: Current Medications Generic Name Dose Route Start Last Admin Trade Name Freq PRN Reason Stop Dose Admin Acetaminophen 500 mg 09/24/24 09:41 Acetaminophen 500 Mg Tablet PO Q4H PRN fever or pain Amlodipine Besylate 2.5 mg 09/24/24 09:41 09/24/24 21:19 Amlodipine 5 Mg Tablet PO 2.5 mg QPM FREDO Administration Benzonatate 200 mg 09/24/24 09:41 Benzonatate 100 Mg Capsule PO BID PRN cough Carbidopa/Levodopa 1 tab 09/25/24 12:05 Carbidopa/Levodopa Er 50 Mg/200 Mg Tablet PO HS FREDO Carbidopa/Levodopa 2 tab 09/25/24 21:00 Carbidopa/Levodopa 25 Mg/100 Mg Tablet PO BID FREDO Famotidine 10 mg 09/24/24 09:41 09/25/24 09:01 Famotidine 20 Mg Tablet PO 10 mg DAILY FREDO Administration Azithromycin 500 mg/ Sodium 250 mls @ 250 mls/hr 09/25/24 09:00 09/25/24 10:50 Chloride IV 09/26/24 09:59 Infused DAILY FREDO Infusion Ceftriaxone Sodium 1 gm/ 100 mls @ 200 mls/hr 09/24/24 09:41 09/25/24 09:20 Sodium Chloride IV 09/28/24 09:29 Infused DAILY FREDO Infusion Lamotrigine 100 mg 09/24/24 09:41 09/25/24 09:01 Lamotrigine 100 Mg Tablet PO 100 mg DAILY FREDO Administration Metoprolol Tartrate 25 mg 09/24/24 09:41 09/25/24 09:04 Metoprolol Tartrate 25 Mg Tablet PO 25 mg BID FREDO Administration Ondansetron HCl 4 mg 09/24/24 09:41 Ondansetron Odt 4 Mg Tablet TL Q6HR PRN Nausea / Vomiting Ondansetron HCl 4 mg 09/24/24 09:41 Ondansetron 4 Mg/2 Ml Vial IVP Q6HR PRN Nausea / Vomiting Oxycodone HCl 5 mg 09/24/24 09:41 Oxycodone 5 Mg Tablet PO Q4HR PRN Pain 5 to 7 Polyethylene Glycol 17 gm 09/25/24 09:00 09/25/24 09:00 Polyethylene Glycol 3350 17 Gm Packet PO 17 gm DAILY FREDO Administration Quetiapine Fumarate 300 mg 09/24/24 21:00 09/24/24 21:19 Quetiapine 100 Mg Tablet PO 300 mg HS FREDO Administration Sodium Chloride 10 ml 09/24/24 09:41 09/24/24 11:17 Sodium Chloride Flush 0.9% 10 Ml Syringe IVP 10 ml PRN PRN Administration NEEDED PER PROVIDER ORDERS Sodium Chloride 10 ml 09/24/24 09:41 09/25/24 08:56 Sodium Chloride Flush 0.9% 10 Ml Syringe IVP 10 ml 0100,0900,1700 FREDO Administration Triamcinolone Acetonide 1 applic 09/24/24 09:58 Triamcinolone 0.1% Cream 15 Gm Tube TOP DAILY PRN itching
--- NOTE | 2024-09-25 14:57 | PT Plan of Care ---
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 [id number] 5. Zio patch 01/2023 Sinus w SVT rare. TTE 01/2023 LVEF nml 60-65%, Grade 1 diastolic. LAE severe 54 ml/m, Mild to mod MR, RV nml. R pressures nml. Repeat TTE 6 months requested. 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 History of cholecystectomy 03/2022 after sepsis w it 2015 and 2021 Hx of total knee replacement 01/2016 History of tonsillectomy and adenoidectomy 1948 BALANCE/FUNCTIONAL RESULTS Sitting Balance: Good Standing Balance: Good Tinetti Composite Score (Balance + Gait): 25 Tinetti Assessment Interpretation: Low Fall Risk ASSESSMENT Assessment: The pt is an 84 y/o F who was arrived to the ED on 09/23/24 after a GLF during the night and complaints of feeling progressively weaker over 24-48 TRANSPORTATION OFFICER, she was hospitalized with URI and a subdural hematoma and is now requiring supplemental O2. Please see chart for medical hx which includes PD and COPD. The pt was received resting comfortably supine in bed while on 2L )2 via NC and presented today with good UE and LE strength, good standing balance, and decreased activity tolerance with subjective report of baseline chronic LBP. At this time the pt does not appear to require continued skilled PT intervention while in the acute setting as she did not require any physical assist or cues for any bed mobility, toileting, or ambulation with a FWW. It is recommended that she DC back to prior facility without further therapy needs once medically stable. This plan was discussed with the pt, she was in agreement with this. At the end of the session the pt was sitting up in a chair with call light in reach and all needs met. RN and MD updated on pt's status and DC rec, no goals will be set as this is an eval only. PATIENT/FAMILY GOALS Patient/Family Goals: To get out of the hospital PLAN Frequency: Evaluation only, no further P.T. DISCHARGE RECOMMENDATIONS Discharge Location: Previous Living Situation Support/Services Needed: No needs Other Discharge Equipment: pt owns all recommended DME Transport Needs at Discharge: Personal vehicle
[2024-09-25] MEDS: methylPREDNISolone SUCCINATE 40 MG/ML VIAL IVP SCH (16:00)
[2024-09-25] MEDS: amLODIPine 5 MG TABLET PO ONE (18:08)
[2024-09-25] MEDS: BENZOCAINE/MENTHOL LOZENGE MM PRN (18:10)
[2024-09-25] MEDS: FORMOTEROL FUMARATE NEB 20 MCG/2 ML INH SCH (19:51)
[2024-09-25] MEDS: BUDESONIDE 0.5 MG/2 ML NEB INH SCH (19:51)
[2024-09-25] MEDS: CARBIDOPA/LEVODOPA 25 MG/100 MG TABLET PO SCH (21:52)
[2024-09-25] MEDS: CARBIDOPA/LEVODOPA ER 50 MG/200 MG TABLET PO SCH (21:52)
[2024-09-26 04:49] LABS: BASOPHILS % (AUTO) 0.1 %; EOSINOPHILS % (AUTO) 0.1 %; HCT - HEMATOCRIT 38.5 % (37.0-47.0); HGB - HEMOGLOBIN 11.9 g/dL (12.0-16.0); LYMPHOCYTES # (AUTO) 0.4 10^3/uL (1.5-3.5); LYMPHOCYTES % (AUTO) 4.4 %; MEAN CORPUSCULAR HGB CONC 30.9 g/dL (32.0-36.0); MEAN CORPUSCULAR VOLUME 100.3 fL (81.0-99.0); MEAN PLATELET VOLUME 9.5 fL (7.9-10.8); MONOCYTES # (AUTO) 0.1 10^3/uL (0.0-1.0); MONOCYTES % (AUTO) 1.3 %; NEUTROPHILS # (AUTO) 9.4 10^3/uL (1.5-6.6); NEUTROPHILS % (AUTO) 93.2 %; PLT - PLATELET COUNT 195 10^3/uL (130-450); RED BLOOD COUNT 3.84 10^6/uL (4.20-5.40); RED CELL DISTRIBUTION WIDTH 13.7 % (12.0-15.0); WHITE BLOOD COUNT 10.1 x10^3/uL (4.8-10.8)
[2024-09-26 05:02] LABS: CALCIUM 8.8 mg/dL (8.5-10.3); CREATININE 1.7 mg/dL (0.6-1.3); POTASSIUM 5.1 mmol/L (3.5-4.5)
[2024-09-26] MEDS: amLODIPine 5 MG TABLET PO SCH (08:57)
--- NOTE | 2024-09-26 19:58 | PROVIDER PROGRESS NOTE ---
Progress Note Progress Note Progress Note: September 26, 2024 4 PM This jesenia lady was seen this morning and this afternoon. She really wants to go home. But she still requiring nasal cannula oxygen. She is on 2 L. She was briefly able to go down to 1 L but then went back up to 2 L to maintain O2 sats above 92%. She feels like she is ambulating enough to be able to go home. She is eating well. 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 Exam: Blood pressure is 164/86, pulse 67, respirations 18, temperature 36.9, O2 sat 97% on 2 L. 84 kg, 5 feet 7 inches Neck is supple Lungs have diminished breath sounds at the bases. No wheezing. Comfortable. Regular rate and rhythm Extremities with trace edema I reviewed her labs: Potassium is up to 5.1. Chloride 116. Carbon dioxide 19. BUN 36, creatinine 1.7. Her BUN and creatinine continued to improve every day. Admit was 55 and 2.5. Glucose is 162. Calcium 8.8. White cell count is normal today. She started at 17.7 on admission. Today's hemoglobin is stable at 11.9. MCV is 100.3. Platelets 195. Sputum was submitted today. Nursing had not been able to submit a specimen. Gram stain had many white cells, few yeast, few hyphal elements. So I do not think this is going to be a good culture for sputum. Blood cultures are negative from September 24. Conclusion/Plan Problem List (1) Acute respiratory failure with hypoxemia: Plan: Appears to be from a combination of pneumonia and bronchitis. Copious phlegm on exam and on lung exam. Chest x-ray confirms pneumonia. She has a history of COPD on her past medical history but she states that her pulmonary function studies do not show obstruction. She is day 3 of stay. Still with hypoxemia requiring nasal cannula oxygen. Patient to remain inpatient status. See #3. . (2) Pneumonia: Plan: Started on community-acquired pneumonia pathway.Ordered Rocephin 1 g daily and she is day 3 of 5. I ordered azithromycin 500 mg daily and she is day 3 of 3. Ordered a sputum culture but I do not think it is going to be helpful. Gram stain shows yeast. Her CT of lungs showed enlarged heart, and the arch and proximal descending thoracic aorta stent graft. She has a history of an aortic dissection with a stent she tells me. CT does not confirm pneumonia even though chest x-ray did. Lung sounds are abnormal. She is short of breath, hypoxic and with an elevated white cell count, so I will treat as pneumonia. Cell count is now normal and hypoxia still requires 2 L nasal cannula. Still needs inpatient treatment.Work, she really wants to go home. I explained that we can see how she does with her oxygen tomorrow. If she feels like good with ambulation and eating she can go home with oxygen.Thrilled about the idea of going home with oxygen but would rather be home than here. Qualifiers: Laterality: unspecified laterality Lung location: unspecified part of lung Pneumonia type: due to unspecified organism Qualified Code(s): J18.9 - Pneumonia, unspecified organism (3) Acute on chronic kidney disease Stage IV BUN and creatinine improved with the 1 L of fluids I gave her. Due to the nationwide shortage we are being very judicious with the use of continuous maintenance fluids and have only given her 1 L. She has responded to that, and the intravenous antibiotics. I will not be continuing maintenance IV fluids. I am encouraging her to take p.o. water and fluids. I am avoiding nephrotoxic medications. She tells me that she only takes Tylenol for pain in the outpatient setting. I told her that was excellent because she should be avoiding any nonsteroidal. In the inpatient side I would avoid medications such as vancomycin. I told her that "thank goodness you do not need that right now". (4) COPD (chronic obstructive pulmonary disease): Plan: Even though pulm function studies do not confirm her diagnosis, she still on an albuterol inhaler, betamethasone and ipratropium. I will continue that. Solu-Medrol 40 mg IV push 3 times a day for 3 doses. That help with wheezing and diminished her phlegm production somewhat. Qualifiers: COPD type: chronic bronchitis Chronic bronchitis type: simple Q ualified Code(s): J41.0 - Simple chronic bronchitis (5) Subdural hematoma: Plan: I have asked nursing to make sure that if she has a change in mental status to notify telehealth immediately. She would need a repeat CT scan and transfer to [facility] if her subdural is expanding. It is now Day 3 of hospitalization and her mental status has remained stable. [facility] neurosurgery attending requested no resumption of anticoagulation for a few days. (6) Contusion of hip: Plan: No bruising visible. Full range of motion in the hip. She says the pain is not too severe. She says that Tylenol will be enough. Qualifiers: Encounter type: initial encounter Laterality: right Qualified Code(s): S70.01XA - Contusion of right hip, initial encounter (7) Contusion of back wall of thorax: Plan: Again, no bruising visible. She feels the pain will be controlled by Tylenol. Qualifiers: Encounter type: initial encounter Thoracic wall location detail: right Qualified Code(s): S20.221A - Contusion of right back wall of thorax, initial encounter (8) Accidental fall in residential facility as place of occurrence Plan: She wants me to emphasize to everyone that this was a simple fall. She missed the bed. She does not want anybody to think that she passed out. Qualifiers: Encounter type: initial encounter (9) Hypertension: Plan: I initially continued her home medication list of metoprolol tartrate 25 mg p.o. twice daily, amlodipine 2.5 mg daily, losartan 50 mg daily . Will monitor her blood pressure and adjust medications as necessary. 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 Since then her BP bounced back up and was 110/57 by 09/24 afternoon. Today her blood pressure has ranged from [id number]. She has corrected her medication list with the pharmacist. The admitting ER nurse had her on losartan as part of her list. She said she is not taking that. So I discontinued her losartan She did receive 1 dose. Will continue to monitor daily and adjust her medications as necessary to avoid hypotension or hypotension. Qualifiers: Hypertension type: primary hypertension Qualified Code(s): I10 - Essential (primary) hypertension (10) Parkinson disease: Plan: Again, I disease that she may or may not have. Diagnosed with [facility] decades ago. Diagnosed on the basis of cogwheel rigidity. She does not have a tremor. And even though she complains of loss of balance, last fall was years ago and she does not think her loss of balance is anything to do with it. She would like me to make sure that she is on the correct dose of her Sinemet. This morning, I left that project up to the pharmacist. They negotiated between themselves and came up with the medication list the way she likes it. She is now satisfied with her Sinemet dosing. (11) Anticoagulant long-term use: Plan: For paroxysmal A-fib. And history of left leg stent. That will not be resumed for a few more days. Neurosurgery attending feels that should wait. I Would resume that approximately October 01 if she still wants it. I do not recommend it. (12) Atrial fibrillation: Plan: So far her rate is controlled. I have resumed her metoprolol. No resumption of anticoagulation for the next few days. I will need to sit down and talk to her about her [id number] score. It is 6 points. But her risk of falls is higher than her risk of stroke from A-fib. I may recommend that she no longer resume anticoagulation. Qualifiers: Atrial fibrillation type: paroxysmal Qualified Code(s): I48.0 - Paroxysmal atrial fibrillation Lab Results Lab results reviewed: Yes
[2024-09-26] MEDS: ACETAMINOPHEN 500 MG TABLET PO PRN (21:00)
[2024-09-27 05:23] LABS: BASOPHILS % (AUTO) 0.1 %; HCT - HEMATOCRIT 37.3 % (37.0-47.0); HGB - HEMOGLOBIN 11.8 g/dL (12.0-16.0); LYMPHOCYTES # (AUTO) 0.7 10^3/uL (1.5-3.5); LYMPHOCYTES % (AUTO) 4.8 %; MEAN CORPUSCULAR HGB CONC 31.6 g/dL (32.0-36.0); MEAN CORPUSCULAR VOLUME 97.9 fL (81.0-99.0); MONOCYTES # (AUTO) 1.1 10^3/uL (0.0-1.0); MONOCYTES % (AUTO) 7.2 %; NEUTROPHILS # (AUTO) 13.5 10^3/uL (1.5-6.6); NEUTROPHILS % (AUTO) 86.8 %; PLT - PLATELET COUNT 190 10^3/uL (130-450); RED BLOOD COUNT 3.81 10^6/uL (4.20-5.40); RED CELL DISTRIBUTION WIDTH 13.6 % (12.0-15.0); WHITE BLOOD COUNT 15.6 x10^3/uL (4.8-10.8)
[2024-09-27 05:32] LABS: CALCIUM 8.6 mg/dL (8.5-10.3); CREATININE 1.6 mg/dL (0.6-1.3); POTASSIUM 4.7 mmol/L (3.5-4.5)
[2024-09-27] MEDS: predniSONE 20 MG TABLET PO SCH (08:09)
--- NOTE | 2024-09-27 09:58 | PROVIDER PROGRESS NOTE ---
Subjective Subjective Subjective: Patient feels better today. She still endorses some dyspnea, especially when she gets up to go to the bathroom. During our conversation, she has some conversational dyspnea as well. She has a continued cough, with some mild sputum production. She denies any fevers or chills. She lives at home and ambulates with a four-wheel walker. She is having some difficulty with a 2 wheeled walker here. She is motivated to go home without oxygen. Today, we did do a oxygen desaturation study. She desaturated to 89%, and became very dyspneic with a short distance of ambulation. Current Medications Current Medications Current Medications: Current Medications Generic Name Dose Route Start Last Admin Trade Name Freq PRN Reason Stop Dose Admin Acetaminophen 500 mg 09/24/24 09:41 09/26/24 21:00 Acetaminophen 500 Mg Tablet PO 500 mg Q4H PRN Administration fever or pain Amlodipine Besylate 2.5 mg 09/24/24 09:41 09/26/24 21:01 Amlodipine 5 Mg Tablet PO 2.5 mg QPM FREDO Administration Amlodipine Besylate 5 mg 09/26/24 09:00 09/27/24 08:09 Amlodipine 5 Mg Tablet PO 5 mg DAILY FREDO Administration Benzonatate 200 mg 09/24/24 09:41 Benzonatate 100 Mg Capsule PO BID PRN cough Budesonide 0.5 mg 09/25/24 19:00 09/27/24 07:01 Budesonide 0.5 Mg/2 Ml Neb INH 0.5 mg RTBID FREDO Administration Carbidopa/Levodopa 1 tab 09/25/24 12:05 09/26/24 21:05 Carbidopa/Levodopa Er 50 Mg/200 Mg Tablet PO 1 tab HS FREDO Administration Carbidopa/Levodopa 2 tab 09/25/24 21:00 09/27/24 08:09 Carbidopa/Levodopa 25 Mg/100 Mg Tablet PO 2 tab BID FREDO Administration Famotidine 10 mg 09/24/24 09:41 09/27/24 08:09 Famotidine 20 Mg Tablet PO 10 mg DAILY FREDO Administration Formoterol Fumarate 20 mcg 09/25/24 19:00 09/27/24 07:01 Formoterol Fumarate Neb 20 Mcg/2 Ml INH 20 mcg RTBID FREDO Administration Ceftriaxone Sodium 1 gm/ 100 mls @ 200 mls/hr 09/24/24 09:41 09/27/24 08:53 Sodium Chloride IV 09/28/24 09:29 Infused DAILY FREDO Infusion Lamotrigine 100 mg 09/24/24 09:41 09/27/24 08:07 Lamotrigine 100 Mg Tablet PO 100 mg DAILY FREDO Administration Metoprolol Tartrate 25 mg 09/24/24 09:41 09/27/24 08:07 Metoprolol Tartrate 25 Mg Tablet PO 25 mg BID FREDO Administration Ondansetron HCl 4 mg 09/24/24 09:41 Ondansetron Odt 4 Mg Tablet TL Q6HR PRN Nausea / Vomiting Ondansetron HCl 4 mg 09/24/24 09:41 Ondansetron 4 Mg/2 Ml Vial IVP Q6HR PRN Nausea / Vomiting Oxycodone HCl 5 mg 09/24/24 09:41 Oxycodone 5 Mg Tablet PO Q4HR PRN Pain 5 to 7 Polyethylene Glycol 17 gm 09/25/24 09:00 09/27/24 08:07 Polyethylene Glycol 3350 17 Gm Packet PO 17 gm DAILY FREDO Administration Prednisone 40 mg 09/27/24 08:00 09/27/24 08:09 Prednisone 20 Mg Tablet PO 40 mg DAILYWM FREDO Administration Quetiapine Fumarate 300 mg 09/24/24 21:00 09/26/24 21:01 Quetiapine 100 Mg Tablet PO 300 mg HS FREDO Administration Sodium Chloride 10 ml 09/24/24 09:41 09/26/24 13:29 Sodium Chloride Flush 0.9% 10 Ml Syringe IVP 10 ml PRN PRN Administration NEEDED PER PROVIDER ORDERS Sodium Chloride 10 ml 09/24/24 09:41 09/27/24 08:09 Sodium Chloride Flush 0.9% 10 Ml Syringe IVP 10 ml 0100,0900,1700 FREDO Administration Throat Lozenges 1 lozenge 09/25/24 17:11 09/25/24 18:10 Benzocaine/Menthol Lozenge MM 1 lozenge Q2HR PRN Administration Throat pain Triamcinolone Acetonide 1 applic 09/24/24 09:58 Triamcinolone 0.1% Cream 15 Gm Tube TOP DAILY PRN itching Objective Vital Signs/Intake & Output Reviewed Vital Signs: Yes Vital Signs: Vital Signs x48h Temp Pulse Pulse Resp BP BP Pulse Ox 09/27/24 09:39 88 02/11/25 08:07 77 152/89 H 09/27/24 07:52 97.7 F 77 20 152/89 H 95 09/27/24 07:03 68 18 09/27/24 07:00 O2 Flow Rate 09/27/24 09:39 09/27/24 08:07 09/27/24 07:52 1.5 09/27/24 07:03 1 09/27/24 07:00 1 Intake & Output: Intake & Output 09/24/24 09/25/24 09/26/24 09/27/24 23:59 23:59 23:59 23:59 Intake Total 1830 / 1830 2720 / 2720 1790 / 1790 870 / 870 Output Total 850 / 850 200 / 200 1100 / 1100 1000 / 1000 Balance 980 / 980 2520 / 2520 690 / 690 -130 / -130 Weight (kg) 84 kg Objective General Appearance: positive Alert and Mild distress (some conversational dyspnea noted); negative Anxious or Lethargic Eyes Bilateral: positive Normal inspection, PERRL and EOMI ENT: positive ENT inspection nml, Pharynx nml and No signs of dehydration Neck: positive Nml inspection, Thyroid nml and No JVD Respiratory: positive Chest non-tender, No respiratory distress and Breath sounds nml; negative Wheezes, Rales or Rhonchi Cardiovascular: positive Regular rate & rhythm, No murmur and No gallop Abdomen: positive Non-tender; negative Tenderness, Guarding, Rebound, Hepatomegaly or Splenomegaly Back: positive Nml inspection; negative CVA tenderness (R) or CVA tenderness (L) Skin: positive Color nml, No rash, Warm and Dry Extremities: positive Non-tender, Full ROM, Nml appearance and No pedal edema Neurologic/Psychiatric: positive Oriented x3 and Mood/affect nml; negative Weakness, Sensory loss, Facial droop or Slurred/abnml speech Lab Results 09/27/24 04:52 09/27/24 04:52 Other Labs: Lab Results x24hrs 09/27/24 Range/Units 04:52 WBC 15.6 H (4.8-10.8) x10^3/uL RBC 3.81 L (4.20-5.40) 10^6/uL Hgb 11.8 L (12.0-16.0) g/dL Hct 37.3 (37.0-47.0) % MCV 97.9 (81.0-99.0) fL MCH 31.0 (27.0-31.0) pg MCHC 31.6 L (32.0-36.0) g/dL RDW 13.6 (12.0-15.0) % Plt Count 190 (130-450) 10^3/uL MPV 9.0 (7.9-10.8) fL Neut # (Auto) 13.5 H (1.5-6.6) 10^3/uL Lymph # (Auto) 0.7 L (1.5-3.5) 10^3/uL [place] # (Auto) 1.1 H (0.0-1.0) 10^3/uL Eos # (Auto) 0.0 (0.0-0.7) 10^3/uL Baso # (Auto) 0.0 (0.0-0.1) 10^3/uL Absolute Nucleated RBC 0.00 x10^3/uL Nucleated RBC % 0.0 /100WBC Sodium 141 (135-145) mmol/L Potassium 4.7 H (3.5-4.5) mmol/L Chloride 115 H (101-111) mmol/L Carbon Dioxide 20 L (21-32) mmol/L Anion Gap 6.0 (6-13) BUN 40 H (6-20) mg/dL Creatinine 1.6 H (0.6-1.3) mg/dL Estimated GFR (MDRD) 31 L (>89) Glucose 119 H (74-104) mg/dL Calcium 8.6 (8.5-10.3) mg/dL Diagnostic Imaging Diagnostic Imaging Results: positive Final report reviewed Assessment/Plan Problem List (1) Acute respiratory failure with hypoxemia: Impression: Resolving. Patient was requiring about 1 L of oxygen. Desaturated to 89% with ambulation today. Continue to wean down as tolerated. (2) Pneumonia: Impression: Completed 3 days of azithromycin. Today is day 4 of Rocephin. Will complete 5-day course tomorrow. Was on IV Solu-Medrol. Switch to oral prednisone today, will continue 5-day course of that, on discharge. Qualifiers: Laterality: unspecified laterality Lung location: unspecified part of lung Pneumonia type: due to unspecified organism Qualified Code(s): J18.9 - Pneumonia, unspecified organism (3) COPD (chronic obstructive pulmonary disease): Impression: Patient with an extensive smoking history. She has a 70-year pack history, and she had PFTs done 10/19/2023. This showed a more restrictive process, but they recommended further management of lung volumes. She does use albuterol inhaler as needed in the outpatient setting. Qualifiers: COPD type: chronic bronchitis Chronic bronchitis type: simple Q ualified Code(s): J41.0 - Simple chronic bronchitis (4) Subdural hematoma: Impression: CT head shows small focal left parafalcine subdural hematoma. She should follow-up with a she also has a 1.5 cm right frontal lobe meningioma. Advised her to follow-up with a repeat CT scan in the outpatient setting with her PCP. (5) Contusion of hip: Impression: No visible bruising. Full motion of hip. Tylenol is controlling the pain. Pelvis CT was done on admission and it showed no acute fracture or dislocation. Qualifiers: Encounter type: initial encounter Laterality: right Qualified Code(s): S70.01XA - Contusion of right hip, initial encounter (6) Hypertension: Impression: Continued metoprolol tartrate, amlodipine. Qualifiers: Hypertension type: primary hypertension Qualified Code(s): I10 - Essential (primary) hypertension (7) Parkinson disease: Impression: Continue Sinemet. Qualifiers: Dyskinesia presence: unspecified whether dyskinesia Fluctuating manifestations: with fluctuating manifestations Qualified Code(s): G20.A2 - Parkinson's disease without dyskinesia, with fluctuations (8) Anticoagulant long-term use: Impression: Plan to resume Eliquis at home 10/01. Will discuss with patient risks versus benefits with her frequent falls. (9) Atrial fibrillation: Impression: Continue metoprolol. Qualifiers: Atrial fibrillation type: paroxysmal Qualified Code(s): I48.0 - Paroxysmal atrial fibrillation
[2024-09-27 20:07] LABS: MYCOPLASMA PNEUMONIAE IGG ABS 259 U/mL (0-99); MYCOPLASMA PNEUMONIAE IGM ABS <770 U/mL (0-769)
[2024-09-28 06:06] LABS: BASOPHILS # (AUTO) 0.1 10^3/uL (0.0-0.1); BASOPHILS % (AUTO) 0.4 %; HCT - HEMATOCRIT 41.4 % (37.0-47.0); HGB - HEMOGLOBIN 13.3 g/dL (12.0-16.0); LYMPHOCYTES # (AUTO) 1.4 10^3/uL (1.5-3.5); LYMPHOCYTES % (AUTO) 8.1 %; MEAN CORPUSCULAR HEMOGLOBIN 31.3 pg (27.0-31.0); MEAN CORPUSCULAR HGB CONC 32.1 g/dL (32.0-36.0); MEAN CORPUSCULAR VOLUME 97.4 fL (81.0-99.0); MEAN PLATELET VOLUME 9.1 fL (7.9-10.8); MONOCYTES # (AUTO) 1.4 10^3/uL (0.0-1.0); MONOCYTES % (AUTO) 8.3 %; NEUTROPHILS # (AUTO) 13.7 10^3/uL (1.5-6.6); NEUTROPHILS % (AUTO) 81.6 %; PLT - PLATELET COUNT 207 10^3/uL (130-450); RED BLOOD COUNT 4.25 10^6/uL (4.20-5.40); RED CELL DISTRIBUTION WIDTH 13.5 % (12.0-15.0); WHITE BLOOD COUNT 16.7 x10^3/uL (4.8-10.8)
[2024-09-28 07:01] LABS: CALCIUM 9.2 mg/dL (8.5-10.3); CREATININE 1.5 mg/dL (0.6-1.3); POTASSIUM 4.7 mmol/L (3.5-4.5)
[2024-09-28] MEDS ORDERED: CONCENTRATED ALBUTEROL NEB 2.5 MG/0.5 ML INH STA (07:27)
[2024-09-28] MEDS: SODIUM ZIRCONIUM CYCLOSILICATE 5 GM PACKET PO ONE (08:07)
[2024-09-28] MEDS: DEXTROSE 50% ABBOJECT 25 GM/50 ML SYRINGE IVP ONE (08:09)
[2024-09-28] MEDS: INSULIN REGULAR, HUMAN 300 UNIT/3 ML PEN IVP ONE (08:09)
[2024-09-28 08:22] VITALS: O2SAT 94
--- NOTE | 2024-09-28 09:33 | PROVIDER PROGRESS NOTE ---
Subjective Subjective Subjective: Patient feels better today. She still endorses some dyspnea, especially when she gets up to go to the bathroom. During our conversation, she has some conversational dyspnea as well. She has a continued cough, with some mild sputum production. She denies any fevers or chills. She lives at home and ambulates with a four-wheel walker. She is having some difficulty with a 2 wheeled walker here. She is motivated to go home without oxygen. Yesterday, we did do a oxygen desaturation study. She desaturated to 89%, and became very dyspneic with a short distance of ambulation. This morning, she expresses concern about her continued weakness. She lives in assisted living facility. We talked about potential options including SNF. She is interested in getting stronger prior to going back to assisted living. We have ordered of physical therapy and Occupational Therapy evaluation this morning. Current Medications Current Medications Current Medications: Current Medications Generic Name Dose Route Start Last Admin Trade Name Freq PRN Reason Stop Dose Admin Acetaminophen 500 mg 09/24/24 09:41 09/26/24 21:00 Acetaminophen 500 Mg Tablet PO 500 mg Q4H PRN Administration fever or pain Amlodipine Besylate 2.5 mg 09/24/24 09:41 09/27/24 21:18 Amlodipine 5 Mg Tablet PO 2.5 mg QPM FREDO Administration Amlodipine Besylate 5 mg 09/26/24 09:00 09/28/24 08:46 Amlodipine 5 Mg Tablet PO 5 mg DAILY FREDO Administration Benzonatate 200 mg 09/24/24 09:41 Benzonatate 100 Mg Capsule PO BID PRN cough Budesonide 0.5 mg 09/25/24 19:00 09/28/24 07:24 Budesonide 0.5 Mg/2 Ml Neb INH 0.5 mg RTBID FREDO Administration Carbidopa/Levodopa 1 tab 09/25/24 12:05 09/27/24 21:18 Carbidopa/Levodopa Er 50 Mg/200 Mg Tablet PO 1 tab HS FREDO Administration Carbidopa/Levodopa 2 tab 09/25/24 21:00 09/28/24 08:10 Carbidopa/Levodopa 25 Mg/100 Mg Tablet PO 2 tab BID FREDO Administration Famotidine 10 mg 09/24/24 09:41 09/28/24 08:45 Famotidine 20 Mg Tablet PO 10 mg DAILY FREDO Administration Formoterol Fumarate 20 mcg 09/25/24 19:00 09/28/24 07:28 Formoterol Fumarate Neb 20 Mcg/2 Ml INH 20 mcg RTBID FREDO Administration Lamotrigine 100 mg 09/24/24 09:41 09/28/24 08:45 Lamotrigine 100 Mg Tablet PO 100 mg DAILY FREDO Administration Metoprolol Tartrate 25 mg 09/24/24 09:41 09/28/24 08:46 Metoprolol Tartrate 25 Mg Tablet PO 25 mg BID FREDO Administration Ondansetron HCl 4 mg 09/24/24 09:41 Ondansetron Odt 4 Mg Tablet TL Q6HR PRN Nausea / Vomiting Ondansetron HCl 4 mg 09/24/24 09:41 Ondansetron 4 Mg/2 Ml Vial IVP Q6HR PRN Nausea / Vomiting Oxycodone HCl 5 mg 09/24/24 09:41 Oxycodone 5 Mg Tablet PO Q4HR PRN Pain 5 to 7 Polyethylene Glycol 17 gm 09/25/24 09:00 09/28/24 08:48 Polyethylene Glycol 3350 17 Gm Packet PO Not Given DAILY FREDO Prednisone 40 mg 09/27/24 08:00 09/28/24 08:10 Prednisone 20 Mg Tablet PO 40 mg DAILYWM FREDO Administration Quetiapine Fumarate 300 mg 09/24/24 21:00 09/27/24 21:18 Quetiapine 100 Mg Tablet PO 300 mg HS FREDO Administration Sodium Chloride 10 ml 09/24/24 09:41 09/26/24 13:29 Sodium Chloride Flush 0.9% 10 Ml Syringe IVP 10 ml PRN PRN Administration NEEDED PER PROVIDER ORDERS Sodium Chloride 10 ml 09/24/24 09:41 09/28/24 08:48 Sodium Chloride Flush 0.9% 10 Ml Syringe IVP 10 ml 0100,0900,1700 FREDO Administration Throat Lozenges 1 lozenge 09/25/24 17:11 09/25/24 18:10 Benzocaine/Menthol Lozenge MM 1 lozenge Q2HR PRN Administration Throat pain Triamcinolone Acetonide 1 applic 09/24/24 09:58 Triamcinolone 0.1% Cream 15 Gm Tube TOP DAILY PRN itching Objective Vital Signs/Intake & Output Reviewed Vital Signs: Yes Vital Signs: Vital Signs x48h Temp Pulse Pulse Resp BP BP Pulse Ox 09/28/24 08:46 174/95 H 09/28/24 08:21 98.1 F 61 18 172/93 H 94 09/28/24 07:27 68 18 Intake & Output: Intake & Output 09/25/24 09/26/24 09/27/24 09/28/24 23:59 23:59 23:59 23:59 Intake Total 2720 / 2720 1790 / 1790 1850 / 1850 240 / 240 Output Total 200 / 200 1100 / 1100 1000 / 1000 1400 / 1400 Balance 2520 / 2520 690 / 690 850 / 850 -1160 / -1160 Objective General Appearance: positive Alert and Mild distress (some conversational dyspnea noted); negative Anxious or Lethargic Eyes Bilateral: positive Normal inspection, PERRL and EOMI ENT: positive ENT inspection nml, Pharynx nml and No signs of dehydration Neck: positive Nml inspection, Thyroid nml and No JVD Respiratory: positive Chest non-tender, No respiratory distress and Breath sounds nml; negative Wheezes, Rales or Rhonchi Cardiovascular: positive Regular rate & rhythm, No murmur and No gallop Abdomen: positive Non-tender; negative Tenderness, Guarding, Rebound, Hepatomegaly or Splenomegaly Back: positive Nml inspection; negative CVA tenderness (R) or CVA tenderness (L) Skin: positive Color nml, No rash, Warm and Dry Extremities: positive Non-tender, Full ROM, Nml appearance and No pedal edema Neurologic/Psychiatric: positive Oriented x3 and Mood/affect nml; negative Weakness, Sensory loss, Facial droop or Slurred/abnml speech Lab Results 09/28/24 05:34 09/28/24 05:34 Other Labs: Lab Results x24hrs 09/28/24 09/24/24 Range/Units 05:34 02:00 WBC 16.7 H (4.8-10.8) x10^3/uL RBC 4.25 (4.20-5.40) 10^6/uL Hgb 13.3 (12.0-16.0) g/dL Hct 41.4 (37.0-47.0) % MCV 97.4 (81.0-99.0) fL MCH 31.3 H (27.0-31.0) pg MCHC 32.1 (32.0-36.0) g/dL RDW 13.5 (12.0-15.0) % Plt Count 207 (130-450) 10^3/uL MPV 9.1 (7.9-10.8) fL Neut # (Auto) 13.7 H (1.5-6.6) 10^3/uL Lymph # (Auto) 1.4 L (1.5-3.5) 10^3/uL [place] # (Auto) 1.4 H (0.0-1.0) 10^3/uL Eos # (Auto) 0.0 (0.0-0.7) 10^3/uL Baso # (Auto) 0.1 (0.0-0.1) 10^3/uL Absolute Nucleated RBC 0.00 x10^3/uL Nucleated RBC % 0.0 /100WBC Sodium 141 (135-145) mmol/L Potassium 4.7 H (3.5-4.5) mmol/L Chloride 113 H (101-111) mmol/L Carbon Dioxide 20 L (21-32) mmol/L Anion Gap 8.0 (6-13) BUN 43 H (6-20) mg/dL Creatinine 1.5 H (0.6-1.3) mg/dL Estimated GFR (MDRD) 33 L (>89) Glucose 94 (74-104) mg/dL Calcium 9.2 (8.5-10.3) mg/dL Mycoplasma pneumon IgG 259 H (0-99) U/mL Mycoplasma pneumon IgM <770 (0-769) U/mL Diagnostic Imaging Diagnostic Imaging Results: positive Final report reviewed Assessment/Plan Problem List (1) Acute respiratory failure with hypoxemia: Impression: Resolved. Patient now on room air. Desaturated to 89% with ambulation on 09/27. Patient remains deconditioned, very dyspneic with exertion. PT/OT consulted for evaluation for possible SNF for appropriate disposition. (2) Pneumonia: Impression: Completed 3 days of azithromycin. Today is day 5 of Rocephin. Was on IV Solu-Medrol. Switch to oral prednisone today, will continue 5-day course of that, on discharge. Qualifiers: Laterality: unspecified laterality Lung location: unspecified part of lung Pneumonia type: due to unspecified organism Qualified Code(s): J18.9 - Pneumonia, unspecified organism (3) COPD (chronic obstructive pulmonary disease): Impression: Patient with an extensive smoking history. She has a 70-year pack history, and she had PFTs done 10/19/2023. This showed a more restrictive process, but they recommended further measurement of lung volumes. She does use albuterol inhaler as needed in the outpatient setting. Qualifiers: COPD type: chronic bronchitis Chronic bronchitis type: simple Q ualified Code(s): J41.0 - Simple chronic bronchitis (4) Subdural hematoma: Impression: CT head shows small focal left parafalcine subdural hematoma. She should follow-up with a she also has a 1.5 cm right frontal lobe meningioma. Advised her to follow-up with a repeat CT scan in the outpatient setting with her PCP. (5) Contusion of hip: Impression: No visible bruising. Full motion of hip. Tylenol is controlling the pain. Pelvis CT was done on admission and it showed no acute fracture or dislocation. Qualifiers: Encounter type: initial encounter Laterality: right Qualified Code(s): S70.01XA - Contusion of right hip, initial encounter (6) Hypertension: Impression: Continued metoprolol tartrate, amlodipine. Qualifiers: Hypertension type: primary hypertension Qualified Code(s): I10 - Essential (primary) hypertension (7) Parkinson disease: Impression: Continue Sinemet. Qualifiers: Dyskinesia presence: unspecified whether dyskinesia Fluctuating manifestations: with fluctuating manifestations Qualified Code(s): G20.A2 - Parkinson's disease without dyskinesia, with fluctuations (8) Anticoagulant long-term use: Impression: Plan to resume Eliquis at home 10/01. Will discuss with patient risks versus benefits with her frequent falls. (9) Atrial fibrillation: Impression: Continue metoprolol. Qualifiers: Atrial fibrillation type: paroxysmal Qualified Code(s): I48.0 - Paroxysmal atrial fibrillation
--- NOTE | 2024-09-28 11:00 | Discharge Summary ---
"Discharge Summary Admit Date: 09/24/24 Discharge Date: 09/28/24 Discharging Provider: Dr. Wes Montgomery Primary Care Provider: Janet Grier Code Status: Attempt Resuscitation Discharge Facility Name: [facility] DIAGNOSES Admission Diagnoses: Acute respiratory failure with hypoxemia Pneumonia COPD Subdural hematoma Condition of hip Contusion of back wall of thorax Accidental wall Hypertension Parkinson disease Anticoagulant long-term use Atrial fibrillation Discharge Diagnoses with Status of Each Condition: Acute respiratory failure with hypoxemiaresolved. Patient is now on room air. Desaturated only to 89% with ambulation yesterday. Remains dyspneic. PT/OT consulted for possible disposition. Home health care ordered. Pneumoniatoday's last day of Rocephin, completed 3 days of azithromycin. Completed a few days of IV Solu-Medrol. Switch to oral prednisone yesterday. Today is day 2 of 5. COPDcontinue albuterol inhaler as needed. Subdural hematomaCT shows small left parafalcine subdural hematoma. She also is a 1.5 cm right frontal lobe meningioma. Advised to follow-up with a repeat CAT scan in the outpatient setting with her PCP. Contusion of hipno bruising noted, full motion of hip. Tylenol is controlling pain. Pelvis CT without any acute fractures or dislocations. Hypertensioncontinue metoprolol and amlodipine. Parkinson diseasecontinue Sinemet. Anticoagulant long-term usepatient is on Eliquis. With this new subdural hematoma, was advised to hold Eliquis at this time. There history of frequent falls, her bleeding risk does outweigh her clotting risk. Discussed with her risks versus benefits of stopping anticoagulation forever. Patient has opted to continue this at a later date. Atrial fibrillationcontinue metoprolol. Rate has been controlled whole time she is been here. HPI History of Present Illness: Per Dr. Childs: She is an 84-year-old female that lives in assisted living facility [facility]. Her past medical history is that of hypertension, chronic kidney disease stage IV, chronic dyspnea on exertion, bipolar 2 disorder, Parkinson's disease, and paroxysmal atrial fibrillation. She does have COPD and sees a doctor of dental medicine. She was seen for routine follow-up September 20 in her primary care provider office where a referral to urology was done for overactive bladder and ACP discussion began. POLST was discussed but not completed. She had chronic lung findings on exam with that visit. But there is no acute change in her status and no change in her pulmonary medications was made. She then developed cough, congestion and worsening acute on chronic shortness of breath on September 22. Phlegm had increased in amount. It was now yellow. Shortness of breath was not present at rest. She could not get anything done to just get up out of a chair. Eating was an issue. A COVID test was done on her this morning and it was negative. She was taken to the walk-in clinic on September 23. Prior to going to the clinic she took some tiotropium and olodaterol. In the walk-in clinic temperature was 101.5. 94% saturated on room air. Pulse 75. Respirations 30. She is described as tachypneic with audible rails of the right lower lobe. A chest x-ray showed previous scarring along the right hilar and right border area that looked worse compared to previous x-ray from February of last year. Wire around the aorta. Early consolidation in the right lower lobe. They put on a diagnosis of hypoxia with an O2 sat of 94% but there is no documentation of use of oxygen. She was put on amoxicillin and azithromycin, dexamethasone and Tessalon Perles. Also on incentive spirometry. Prescriptions: To the [facility]. 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 Today in the batch dumper hours she got up to go to the bathroom. She is weak, tired. Short of breath. As she went toward the bed she put her hand out to balance herself and misjudged where the bed was and completely missed it and fell on the floor. She hurt her right gluteal area, right hip area. She denies syncope. She was conscious the entire time. She is brought to the emergency room close to 2 in the morning. Temperature was 36.3, pulse rate 51, respirations 20, blood pressure 106/63, O2 sat 100%. She then dropped to 90% on room air. She describes her pain at a 4 out of a 10 over that right hip area. Her white cell count is elevated at 17. BUN and creatinine are 55 and 2.5 with a history of chronic kidney disease stage IV. PCR did not detect any viral infection. Because of the hypoxemia, a CT of the chest was done and she had mild infiltrate in the left lower lobe. No rib fractures. She is on anticoagulation and a CT of the head was done. She has an incidental meningioma with calcification very very small parafalcine subdural without any midline shift. The subdural was discussed with Dr. Gonzalez at [facility]. He felt the injury was small and that we just needed to repeat the head CT at 4 hours to see if any intervention will need to be done. [address] of the head was redone and there is no change in the subdural size. I asked that she does not need transfer to [facility] per Dr. Harrison, and Dr. Wan is asking me to admit this patient for pneumonia. After discussing the case with him, I do feel she does meet criteria and that she has an abnormal infiltrate, hypoxemia, elevated white cell count, tachypnea and will admit the patient to inpatient status. CONSULTS | PROCEDURES Consultations: Physical therapy, Occupational Therapy, social work Procedures: Chest x-ray, head CT, chest CT, cervical spine CT, pelvis CT, sputum culture, blood cultures HOSPITAL COURSE Hospital Course: Patient is an 84-year-old female with a history of Parkinson's disease, paroxysmal atrial fibrillation, bipolar disorder type II, COPD not on home oxygen who presented from her assisted living facility [facility] for worsening dyspnea, fevers, chills, cough. Chest x-ray showed early consolidation in the right lower lobe. She was started on azithromycin and Rocephin, as well as IV steroids. Slowly her oxygen was weaned down. Her white count remains mildly elevated, likely reactive to steroid use. She has had no fevers or chills. She was advised to follow-up on this within a week. Additionally, her potassium levels remain elevated, and she had an PAUL on admission. Her creatinine is now back to her baseline 1.5. Her potassium has also been improving. She was also advised to follow-up on this in the outpatient setting. Patient was pretty deconditioned. PT/OT evaluate the patient, and they recommended home health. ALLERGIES Allergies Allergy/AdvReac Type Severity Reaction Status Date / Time sertraline AdvReac Unknown Unknown Verified 06/28/24 13:42 valproic acid AdvReac Unknown Nausea Verified 06/28/24 13:42 diltiazem AdvReac Unknown Verified 12/25/23 17:06 lithium AdvReac Unknown Verified 06/28/24 13:42 pramipexole AdvReac Unknown Verified 12/25/23 17:06 tetracycline AdvReac Emesis Verified 12/25/23 17:06 MEDICATIONS Ambulatory Orders Medication Instructions Recorded Confirmed amlodipine 5 mg tablet 2.5 mg PO DAILY PM 06/28/24 09/24/24 carbidopa 25 mg-levodopa 100 mg 2 tab PO BID 06/28/24 09/25/24 tablet (Sinemet) carbidopa ER 50 mg-levodopa 200 mg 1 tab PO ONCE HS 06/28/24 09/25/24 tablet,extended release metoprolol tartrate 25 mg tablet 25 mg PO BID 06/28/24 09/24/24 omeprazole 20 mg capsule,delayed 20 mg PO QDAY 07/28/24 09/24/24 release quetiapine 100 mg tablet 300 mg PO .QHS 07/28/24 09/24/24 albuterol sulfate 90 mcg/actuation 1 inh inhalation QID #8.5 grams 08/01/24 09/24/24 aerosol inhaler (Ventolin HFA) apixaban 2.5 mg tablet (Eliquis) 2.5 mg PO BID 08/01/24 09/24/24 tiotropium 2.5 mcg-olodaterol 2.5 2 puff inhalation Q24H #4 grams 08/01/24 09/24/24 mcg/actuation mist for inhalation (Stiolto Respimat) trospium 60 mg capsule,extended 60 mg PO QAM #90 caps 08/01/24 09/24/24 release 24 hr d-mannose 500 mg capsule 500 mg PO DAILY 08/04/24 09/24/24 sennosides 8.6 mg capsule (senna) 8.6 mg PO HS PRN constipation 08/04/24 09/24/24 benzonatate 200 mg capsule 200 mg PO BID PRN cough #14 caps 09/23/24 09/24/24 acetaminophen 500 mg tablet 500 mg PO Q4H PRN fever or pain 09/24/24 09/24/24 (Tylenol Extra Strength) betamethasone valerate 0.1 % 1 applic topical DAILY PRN itching 09/24/24 09/24/24 topical cream clindamycin phosphate 1 % topical 1 applic topical DAILY PRN acne 09/24/24 09/24/24 solution famotidine 20 mg tablet 20 mg PO DAILY 09/24/24 09/24/24 hydrocodone 5 mg-acetaminophen 325 1 tab PO HS PRN pain 09/24/24 09/24/24 mg tablet ipratropium bromide 42 mcg (0.06 2 spray intranasal QID 09/24/24 09/24/24 %) nasal spray lamotrigine 100 mg tablet 100 mg PO DAILY 09/24/24 09/24/24 mirabegron 50 mg tablet,extended 50 mg PO Q24H 09/24/24 09/24/24 release 24 hr (Myrbetriq) ondansetron HCl 8 mg tablet 4 - 8 mg PO BID nausea 09/24/24 09/24/24 rosuvastatin 20 mg tablet 20 mg PO DAILY 09/24/24 09/24/24 prednisone 20 mg tablet 40 mg (2 x 20 mg) PO DAILY 3 days 09/28/24 #6 tabs prednisone 20 mg tablet 40 mg (2 x 20 mg) PO DAILYWM #3 09/28/24 tabs PHYSICAL EXAM AT DISCHARGE General Appearance: positive No acute distress and Alert; negative Anxious Eyes Bilateral: positive Normal inspection, PERRL and EOMI ENT: positive ENT inspection nml, Pharynx nml and No signs of dehydration Neck: positive Nml inspection, Thyroid nml and No JVD Respiratory: positive Chest non-tender, No respiratory distress and Breath sounds nml; negative Wheezes, Rales or Rhonchi Cardiovascular: positive No murmur, No gallop and Irregularly irregular; negative Tachycardia Peripheral Pulses: positive 2+ Abdomen: positive Non-tender and No distention; negative Tenderness, Guarding, Hepatomegaly or Splenomegaly Back: positive Nml inspection; negative CVA tenderness (R) or CVA tenderness (L) Skin: positive Color nml, No rash, Warm and Dry Extremities: positive Non-tender, Full ROM and Nml appearance Neurologic/Psychiatric: positive Oriented x3 and Mood/affect nml LABS 09/28/24 05:34 09/28/24 05:34 DIAGNOSTIC IMAGING Diagnostic Imaging Results: Final report reviewed QUALITY (Female Hip Fx Only) Was patient sent home on osteoporosis medication?: No FOLLOW UP Follow Up: Follow up with PCP in 1-2 weeks to recheck WBC count, BMP. TIME SPENT Time Spent in Discharge (Minutes): 35 Discharge Plan Discharge Patient Disposition: [facility], Self Care Condition: Stable Prescriptions: New prednisone 20 mg Tablet 40 mg PO DAILYWM Qty: 3 0RF prednisone 20 mg tablet 40 mg PO DAILY 3 Days Qty: 6 0RF Continued amlodipine 5 mg tablet 2.5 mg PO DAILY PM carbidopa-levodopa [Sinemet] 25-100 mg tablet 2 tab PO BID Patient Comments: Pt states taking 1-2 tablets once or twice dailyl famotidine 20 mg tablet 20 mg PO DAILY rosuvastatin 20 mg tablet 20 mg PO DAILY acetaminophen [Tylenol Extra Strength] 500 mg tablet 500 mg PO Q4H PRN (Reason: fever or pain) betamethasone valerate 0.1 % cream 1 applic topical DAILY PRN (Reason: itching) clindamycin phosphate 1 % solution 1 applic topical DAILY PRN (Reason: acne) hydrocodone-acetaminophen 5-325 mg tablet 1 tab PO HS PRN (Reason: pain) ondansetron HCl 8 mg tablet 4 - 8 mg PO BID lamotrigine 100 mg tablet 100 mg PO DAILY ipratropium bromide 42 mcg (0.06 %) spray,non-aerosol 2 spray INTRANASAL QID mirabegron [Myrbetriq] 50 mg tablet extended release 24 hr 50 mg PO Q24H trospium 60 mg capsule,extended release 24hr 60 mg PO QAM Qty: 90 0RF Rx Instructions: must be taken on empty stomach at least 1 hour before a meal/food with water only Stiolto Respimat 2.5-2.5 mcg/actuation mist 2 puff inhalation Q24H Qty: 4 1RF albuterol sulfate [Ventolin HFA] 90 mcg/actuation HFA aerosol inhaler 1 inh inhalation QID Qty: 8.5 2RF d-mannose 500 mg capsule 500 mg PO DAILY senna 8.6 mg capsule 8.6 mg PO HS PRN (Reason: constipation) benzonatate 200 mg capsule 200 mg PO BID PRN (Reason: cough) Qty: 14 0RF carbidopa-levodopa 50-200 mg tablet extended release 1 tab PO ONCE HS Patient Comments: Pt states takes 1 tablet daily at bedtime. metoprolol tartrate 25 mg tablet 25 mg PO BID quetiapine 100 mg tablet 300 mg PO .QHS omeprazole 20 mg capsule,delayed release(DR/EC) 20 mg PO QDAY Held Eliquis 2.5 mg tablet 2.5 mg PO BID Hold Instructions: Resume on 10/05/24. Resume after discussion with PCP. Patient Comments: take 1 tablet by mouth twice a day Discontinued amoxicillin 875 mg tablet 875 mg PO BID Qty: 60 0RF azithromycin 250 mg tablet See Rx Instructions PO .COMPLEX Qty: 6 0RF Rx Instructions: For 250 mg dose pack: take 500 mg today (day 1), then 250 mg for 4 days (days 2-5) PO dexamethasone 6 mg tablet 6 mg PO QDAY 3 Days Qty: 3 0RF Activity Restrictions: Activity as Tolerated Diet: Regular Health Concerns: You came in because you were having shortness of breath, fevers, chills, as well as an increased cough. Your chest x-ray showed that you had a pneumonia. We started you on some IV antibiotics, as well as steroids. Since you have been here, you have completed your antibiotic course. I will be sending you home with three more days of oral steroids, called prednisone. While you were here, your white count stayed a little high. This can be reactive to the steroids. Nevertheless, I would like for you to get this rechecked in 1 to 2 weeks with your primary care provider. Additionally, your potassium levels were a little elevated. This is likely due to a slight kidney injury that you had on arrival. We did a review of your medication list, and none of them should be causing this high potassium. We did treat it, but again, I would like you to get this rechecked in 1 to 2 weeks with your primary care provider to make sure it's stable. Please complete your course of prednisone. Please continue to take your inhalers as they are prescribed. If you experience worsening shortness of breath, fevers, chills, weakness, please feel free to return to the emergency room. We are glad you are feeling better, thank you for letting us take care of you. Print Language: Micronesian Patient Instructions: Pneumonia Dc, ED Pneumonia Ch Stand Alone Forms: PCP List Follow-up Care: Janet Grier PA-C [Provider Admit Priv/Credential] - 1 Week"
--- NOTE | 2024-09-28 12:43 | OT Plan of Care ---
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 [id number] 5. Zio patch 01/2023 Sinus w SVT rare. TTE 01/2023 LVEF nml 60-65%, Grade 1 diastolic. LAE severe 54 ml/m, Mild to mod MR, RV nml. R pressures nml. Repeat TTE 6 months requested. 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 Seen for OT eval 2/ safe d/c recs. Weaned off O2 support - Met on RA; Spo2 89 - 94% with mobility. A&Ox4, willing to participate. Performed functional mobility and ADL's MOD I using RW - No over LOB however pt does desat slightly and endorse fatigue. Educated on PLB and compensatory techniques. Red cont mobility with nursing and D/c back to [facility] with HHOT/PT. No further skilled OT needed at acute level of care. Plan Treatment Frequency Evaluation only, no further O.T. -Discharge Recommendations Discharge Location Assisted Living Facility Transport Needs at Discharge Personal vehicle
[2024-09-28 12:44] VITALS: BP 136/95; TEMP 97.9
== END 2024-09-28 14:13 | disposition home or self-care (01) | DRG 189 ==
LOC: ED 01:50 → MS2 08:32
PROVIDERS: ADMIT Specialist; ATTEND Specialist
DX: S20.229A Contusion of unspecified back wall of thorax, initial encounter; I48.0 Paroxysmal atrial fibrillation; N32.81 Overactive bladder; R32 Unspecified urinary incontinence; J18.9 Pneumonia, unspecified organism; S06.5XAA Traumatic subdural hemorrhage with loss of consciousness status unknown, initial encounter; N18.4 Chronic kidney disease, stage 4 (severe); W18.30XA Fall on same level, unspecified, initial encounter; Z66 Do not resuscitate; N17.9 Acute kidney failure, unspecified; R53.1 Weakness; D32.0 Benign neoplasm of cerebral meninges; S20.221A Contusion of right back wall of thorax, initial encounter; S06.5X0A Traumatic subdural hemorrhage without loss of consciousness, initial encounter; G20.A2 Parkinson's disease without dyskinesia, with fluctuations; F31.81 Bipolar II disorder; Y92.092 Bedroom in other non-institutional residence as the place of occurrence of the external cause; I12.9 Hypertensive chronic kidney disease with stage 1 through stage 4 chronic kidney disease, or unspecified chronic kidney disease; S70.01XA Contusion of right hip, initial encounter; Z87.891 Personal history of nicotine dependence; Z91.81 History of falling; J44.0 Chronic obstructive pulmonary disease with (acute) lower respiratory infection; J96.01 Acute respiratory failure with hypoxia; R09.02 Hypoxemia; Z79.01 Long term (current) use of anticoagulants; I48.91 Unspecified atrial fibrillation